=== PATIENT | male | born 1980 | race African-American/Black ===

== ENCOUNTER 2024-03-22 12:24 | Emergency (ER) | payer BC, SELFPAY ==
[2024-03-22] VITALS (8 sets, daily range): BP systolic 119–171; BP diastolic 80–105; BMI 39.4
[2024-03-22 13:01] LABS: % Basophils 0.7 % (0-2); % Eosinophils 1.8 % (0-6); % Immature Granulocytes 0.4 % (0-0.5); % Lymphocytes 48.4 % (20.5-51.1); % Monocytes 8.1 % (1.7-9.3); % Neutrophils 40.6 % (42.2-75.2); Absolute Eosinophils 0.1 10^3/uL (0-0.7); Absolute Lymphocytes 2.2 10^3/uL (1.2-3.4); Absolute Monocytes 0.4 10^3/uL (0.1-0.6); Absolute Neutrophils 1.8 10^3/uL (1.4-6.5); Hematocrit 40.2 % (39.0-52.0); Hemoglobin 14.3 g/dL (13.0-18.0); Mean Corp Hgb Conc. 35.6 g/dL (33.0-37.0); Mean Corpuscular Hgb 30.2 pg (27.0-31.0); Mean Corpuscular Volume 84.8 fL (80.0-94.0); Mean Platelet Volume 10.1 fL (7.4-10.4); Nucleated Red Blood Cells % 0 % (-); Platelet Count 175 10^3/uL (130-400); Red Blood Cell Count 4.74 10^6/uL (4.70-6.10); Red Cell Dist. Width 13.8 % (11.5-14.5); White Blood Cell Count 4.5 10^3/uL (4.8-10.8)
[2024-03-22 13:24] LABS: ALT (SGPT) 24 U/L (0-50); AST (SGOT) 26 U/L (17-59); Albumin 4.3 g/dl (3.5-5.0); Alkaline Phosphatase 76 U/L (38-126); Blood Urea Nitrogen 9 mg/dl (9-20); Calcium 9.6 mg/dl (8.4-10.2); Carbon Dioxide 26 mmol/L (22-30); Chloride 102 mmol/L (98-107); Estimated Creatinine Clearance 103 ml/min; Glucose 127 mg/dl (70-99); Potassium 4.6 mmol/L (3.5-5.1); Sodium 136 mmol/L (135-145); Total Bilirubin 0.4 mg/dl (0.2-1.3); Total Protein 6.5 g/dl (6.3-8.2); eGFR > 60.00
[2024-03-22] MEDS: BENADRYL 25 MG IV (14:06)
[2024-03-22] MEDS: REGLAN 10 MG IV (14:07)
--- NOTE | 2024-03-22 14:12 | ED.GENMED ---
History of Present Illness
General
Chief Complaint: Headache
Source: patient
Exam Limitations: none
Time Seen by Provider: 03/22/24 13:17
Nursing documentation reviewed up to this point in time: agreed with
History of Present Illness
History of Present Illness:
44 y/o M with h/o bipolar, depression, insomnia, epilepsy dx 08/2023 first seizure, has had 4 seizures most recetn early february when he was taken off keppra nd changed to lamictal
here with headache 2-3 days
gradual, bitemporal and top of head, would come on and get beter with iburpofen initially but last night started pain 8 pm and was in a lto of pain overnight
he finaly felt relief around 6 am
he has had some photophobia, no nausea, vomiting, weakness, vision changes, dizzniess, cp, sob
he became a bit anxious last night about the symptoms but now feels better
he called his neurologist who called in RX for sumatriptan but he didn't get it yet
mom wanted him to come get checked
he thinks he wants to switch neurologists
no fever, chills, congestion
Past History
Past History
ED Past Medical History: HTN, Psychiatric (anxiety) and Other (hiatal hernia)
Social History
Tobacco: Smoker (cigars)
Alcohol: Occasional
Drug: None
Review of Systems
Review of Systems
Allergies reviewed?: Yes
All Other Systems: Not applicable
Phy Exam
Physical Exam
Physical Exam:
GENERAL: Alert , in no apparent distress, eddie well appearing
HEAD: NCAT
EYE: pupils equal and reactive, no nystagmus, no photophobia
NECK: Supple,full rom, nontender
ENT: o/p clr, mmm.
CARDIAC: Regular rate and rhythm . no edema
LUNGS: Clear breath sounds bilaterally, no acute respiratory distress, no wheezes/rales/rhonchi
ABDOMEN: Soft, without focal tenderness, no r/g, no cvat
NEUROLOGICAL: Alert and orientedx 4, cn intact, no facial asymmetry, 5/5 strength in UE/LE, sensation intact, romberg neg, ambulates without assistance, neg pronator drift
SKIN: Warm and dry, skin intact.
MUSCULOSKELETAL: No edema, well perfused.
PSYCH: Normal and appropriate interaction.
Course
Orders/Labs/Results
Orders:
Orders
03/22/24 12:55
Complete Blood Count/With Diff Urgent
Comprehensive Metabolic Panel Urgent
03/22/24 13:46
Diphenhydramine [Benadryl] 25 mg IV NOW STA
Metoclopramide [Reglan] 10 mg IV NOW STA
03/22/24 13:47
CT Head W/o Iv Contrast Urgent
Comment:
Reason For Exam: headache
03/22/24 14:12
Add On- LAB Urgent
Tests Added?: depakote level
03/22/24 14:57
Depakane Urgent
03/22/24 15:26
Sumatriptan Succinate [Imitrex] 6 mg SC NOW STA
03/22/24 15:29
Electrocardiogram (*1) Urgent
Reason for Study: QTc Monitoring
EKG- Treatment ONCE
Abnormal Lab Results
03/22/24
12:55
WBC 4.5 L 10^3/uL
(4.8-10.8)
Neutrophils % 40.6 L %
(42.2-75.2)
Glucose 127 H mg/dl
(70-99)
03/22/24 12:55
03/22/24 12:55
Vital Signs
Initial and Last Documented VS:
Initial Vital Signs
Temp Pulse Resp BP Pulse Ox
98.4 F 94 18 171/105 95
03/22/24 12:28 03/22/24 12:28 03/22/24 12:28 03/22/24 12:28 03/22/24 12:28
Last Documented Vital Signs
Temp Pulse Resp BP Pulse Ox
98.4 F 93 19 120/87 94
03/22/24 12:28 03/22/24 16:35 03/22/24 16:35 03/22/24 16:35 03/22/24 14:30
MDM/Problems Addressed
Differential Diagnosis Includes:
headache, migraine, tension headache,
MDM/Problems Addressed:
44 y/o M with ho epilepsy
on lamictal,
here with headache x 3 days waxing and waning, intiially treated with iburpfoen but now it isn't helping much
he had worse pain overnight and didn't sleep well but now he feels it is a little better 6/10
he has some photohpobia, no nausea/vomiting
he called his neurologist yesterday from [place] who called him in sumatriptan but pt didn't pick it up yet and mom wanted him to get checed
no fever, chills, congesiton, sore throat, visoin changes, weakness, numbness, cp, sob
he is extremely well appearing
comfortable
no photophobia
normal neuro exam
appreciated htn in waiting room but improved bp here
screening labs unremarkable
ct neg
reassessed after reglan and benadryl and still having 6/10 pain though he ate a sandwich and seems very comfortable
given his neurologist recommended sumatriptan, i did give a dose
screenign ekg normal
pt had almost complete resolution pain /10
stable for d/c
fu neuro
*Critical Care Note
Total Time (30-74mins, 75-104mins- exclusive of procedures): Not Applicable
ED Attending Note
-
Portions of this chart may have been created with voice recognition software.� Occasional wrong word or��sound alike� substitutions may have occurred due to the inherent limitations of voice recognition software.
Discharge Plan
Departure
Patient Disposition: Home (Routine Discharge)
Date of Disposition: 03/22/24
Time of Disposition: 16:17
Patient with high blood pressure during this ER visit?: No
Discharge Problem:
Headache
Instructions: Headache, Adult (DC)
Prescriptions:
No Action
divalproex [Depakote] 500 mg Tablet,Delayed Release (Dr/Ec)
1,000 mg PO BID
lamotrigine 25 mg Tablet
25 mg PO BID
metformin 500 mg Tablet
500 mg PO BID
quetiapine [Seroquel XR] 150 mg Tablet Extended Release 24 Hr
150 mg PO HS
Ozempic 0.25 mg or 0.5 mg (2 mg/3 mL) Pen Injector
0.5 mg SC MO
Rx Instructions:
for 4 weeks
Referrals:
Ricco Boo MD [Active] - Follow up in 1 week (NEURO)
Dai Dumont DO [Family Provider] - Follow up in 2-3 days
Activity Restrictions/Additional Instructions:
YOUR HEADACHE DOES NOT SEEM TO BE CAUSED BY AN EMERENCY
I TRIED CALLING YOUR DOCTOR BUT LEFT A MESSAGE
YOU WERE GIVEN THE MEDICATION THAT I GAVE YOU TODAY THAT HELPED
USE DIRECTED BY YOUR NEUROLOGIST
FOLLOW UP WITH HIM
YOU CAN ALWAYS CALL OUR NEUROLOGY GROUP FOR AN APPOINTMENT
RETURN FOR ANY CONCERNS LIKE SEVERE SUDDEN WORST HEADACHE OF LIFE, VOMITING, FEVER, EAKNESS, DIZZINESS, BLURRY VISION ETC
Interventions
Interventions:
*Risk Screen - Suicide Last Done: 03/22/24 12:39
*General Assessment Last Done: 03/22/24 12:28
*Neglect/Abuse Screening Last Done: 03/22/24 12:39
*ED COVID-19 Vaccine History Last Done: 03/22/24 12:28
*Nursing Disposition Last Done: 03/22/24 16:35
ED- Neurological Assessment Last Done: 03/22/24 12:39
Discharge Date and Time
Discharge Date/Time: 03/22/24 16:36
Print Language: SYRIAC
[2024-03-22] MEDS: IMITREX 6 MG SC (15:49)
== END 2024-03-22 16:36 | disposition home or self-care (01) ==
LOC: EMR 12:24
PROVIDERS: EMERGENCY PHYSICIAN Emergency Medicine; FAMILY PHYSICIAN Family Medicine
DX: R51.9 Headache, unspecified (principal); H53.149 Visual discomfort, unspecified; I10 Essential (primary) hypertension; G40.909 Epilepsy, unspecified, not intractable, without status epilepticus; F41.9 Anxiety disorder, unspecified; K44.9 Diaphragmatic hernia without obstruction or gangrene; K21.9 Gastro-esophageal reflux disease without esophagitis; F31.9 Bipolar disorder, unspecified; F32.A Depression, unspecified; F17.290 Nicotine dependence, other tobacco product, uncomplicated; Z96.643 Presence of artificial hip joint, bilateral; Z88.6 Allergy status to analgesic agent; Z88.8 Allergy status to other drugs, medicaments and biological substances
CPT/HCPCS: 99285; 96374; 96375; 96372; 70450; 80053; 85025; 93005

== ENCOUNTER 2024-05-10 05:12 | Inpatient (IN) | payer BC, SELFPAY ==
[2024-05-09] VITALS (24 sets, daily range): BP systolic 105–165; BP diastolic 65–125; BMI 35.6
--- NOTE | 2024-05-09 20:25 | EDRN ---
1953- 2mg IV ativan given
1956- 2mg IV ativan given
1957- 102 HR
2004- 18G IV L hand
2005- 100mg of propofol given by Dr. Solitario; 22G IV L hand
2006- rocuronium 100mg
2007- 132/111 BP
2008- An additional 60mg of propofol given
2010- patient being bagged
2012- attempt x2 for ET placement by Dr. Solitario
2012- Dr. Goldstein at bedside
2013- Dr. Goldstein successful with ET placement - 8 mm ET, 24 at the lip
--- NOTE | 2024-05-09 20:29 | ED.GENMED ---
History of Present Illness
General
Chief Complaint: Seizure
Source: family
Time Seen by Provider: 05/09/24 20:05
Nursing documentation reviewed up to this point in time: agreed with
History of Present Illness
History of Present Illness:
44-year-old male presents emergency department seizing. He has a history of seizures and every time he has seizures, he usually gets intubated. He was not feeling well, and his mother was bringing him to the hospital when he began having seizures.
Past History
Past History
ED Past Medical History: HTN, Seizures, Psychiatric (anxiety) and Other (hiatal hernia)
ED Past Surgical History: Orthopedic (Bilateral hip replacement)
Social History
Tobacco: Smoker (cigars)
Alcohol: Occasional
Drug: None
Review of Systems
Review of Systems
Allergies reviewed?: Yes
Unable to obtain full review of systems at this time due to: intubated
All Other Systems: Not applicable
Phy Exam
Physical Exam
Physical Exam:
Physical Exam
General: Seizing
Neck: supple. no meningeal signs. normal posterior pharynx
Heart: s1/s2 tachycardia, no murmur. equal radial
pulses.
HEENT: Pupils equal round reactive to light, EOMI
Lungs: no acute respiratory distress. clear bilaterally
Abdomen: normal bowel sounds. not tender. no CVAT
Neuro: Actively seizing
Skin: no rash
Psychiatric: Seizing
Extremities: no edema. no calf tenderness. negative homans. good distal pulses
Course
Orders/Labs/Results
Orders:
Orders
05/09/24 20:12
Portable Chest Xray [CR Chest Portable - 1 View] Urgent
Comment:
Reason For Exam: tube placement
Reason Study Needs to be Portable: Patient Unstable
05/09/24 20:18
Propofol 1,000,000 Mcg/100 ml [Diprivan] 1,000,000 mcg in 100 ml .ROUTE .STK-MED
05/09/24 20:19
Complete Blood Count/With Diff Urgent
Comprehensive Metabolic Panel Urgent
PT/INR [Prothrombin Time] Urgent
Triglycerides Routine
Comment: baseline levels with propofol infusion
Troponin I Urgent
05/09/24 20:22
FentaNYL 1,000 MCG/100 ML [Sublimaze] 1,000 mcg in 100 ml IV NOW
Indication:: Light Sedation
Begin Infusion:: Now
Goal:: pain score </= 1, CPOT 0-2
Maximum dose in mcg/hr:: 300
Initial Dose in mcg/hr:: 50
Titration Instructions:: Titrate every 30 minutes if patient exhibits signs of pain or discomfort
Titration Instructions:: (pain score >/= 2, CPOT >/= 3).
Titration Instructions:: Administer bolus dose and increase infusion by 25 mcg/hr.
Taper Instructions:: If pain score at goal for 4 consecutive hours (pain score </= 1, CPOT 0-2)
Taper Instructions:: decrease infusion by 50 mcg/hr every 2 hours.
Taper Instructions:: When dose </= 50 mcg/hr may turn infusion off and consider PRN
Taper Instructions:: intermittent bolus doses only.
Over-sedation Instructions:: If CPOT 0-2 (goal) and RASS -3 to -5 (below goal) decrease sedative by 50%
Over-sedation Instructions:: first. If pain score remains at goal and RASS remains below goal in 1 hour,
Over-sedation Instructions:: decrease opioid infusion by 50%.
Notify provider:: immediately if pt exhibits: chest wall rigidity, hemodynamic instability,
Notify provider:: agitation/pain despite maximum dosing, pain when RASS below goal.
Additional Instructions:: Patient MUST be mechanically ventilated.
Fentanyl Citrate/Pf [Sublimaze] 50 mcg IV NOW STA
Fentanyl Citrate/Pf [Sublimaze] 50 mcg IV [id number] PRN
Propofol 1,000,000 Mcg/100 ml [Diprivan] 1,000,000 mcg in 100 ml IV NOW
Indication:: Light Sedation
Begin Infusion:: Now
Goal:: RASS 0 to -2
Maximum dose in mcg/kg/min:: 50
Initial dose based on RASS:: Yes
If RASS is:: +1 or pt hemodynamically unstable (SBP < 90mmHg), initiate at 10 mcg/kg/min
If RASS is:: +2, initiate at 20 mcg/kg/min
If RASS is:: greater than or equal to +3, initiate at 30 mcg/kg/min
Titration Instructions:: Titrate by 5-10 mcg/kg/min every 5 minutes until RASS 0 to -2 achieved.
Taper Instructions:: If RASS is at or below goal for 4 consecutive hours decrease infusion by
Taper Instructions:: 5-10 mcg/kg/min every 2 hours to off.
Over-sedation Instructions:: If CPOT 0-2 (at goal) AND RASS -3 to -5 (below goal) decrease sedative by
Over-sedation Instructions:: 50% first. If pain score remains at goal and RASS remains below goal in
Over-sedation Instructions:: 1 hour, decrease opioid infusion by 50%.
Notify provider:: immediately if patient exhibits signs/symptoms of propofol-related
Notify provider:: infusion syndrome.
Additional Instructions:: Patient MUST be mechanically ventilated and MUST receive analgesia.
05/09/24 20:27
Propofol 1,000,000 Mcg/100 ml [Diprivan] 1,000,000 mcg in 100 ml IV NOW
05/09/24 20:29
Electrocardiogram (*1) Stat
Reason for Study: Other
Other Reason for Exam: seizures
Electrocardiogram (*1) Urgent
Reason for Study: Shortness of Breath
EKG- Treatment ONCE
05/09/24 21:22
ABG [Arterial Blood Gas] Urgent
%Oxygen/Room Air: 100
05/09/24 22:00
Flush (0.9% Sodium Chloride) [Flush (Nss)] See Dose Instructions IV PER PROTOCOL
05/09/24 22:30
0.9% Sodium Chloride 1000 ml [Nss] 1,000 ml IV 125 mls/hr
Abnormal Lab Results
05/09/24 05/09/24
20:19 21:22
Absolute Monos (auto) 0.7 H 10^3/uL
(0.1-0.6)
Neutrophils % 34.5 L %
(42.2-75.2)
Lymphocytes % 51.2 H %
(20.5-51.1)
Monocytes % 11.6 H %
(1.7-9.3)
pH 7.31 L
(7.35-7.45)
pCO2 50 H mmHg
(35-48)
pO2 130 H mmHg
(83-108)
ABG O2 Sat (Measured) 99.0 H %
(94-98)
Glucose 107 H mg/dl
(70-99)
AST 66 H U/L
(17-59)
Triglycerides 152 H mg/dl
(10-149)
05/09/24 20:19
05/09/24 20:19
Vital Signs
Initial and Last Documented VS:
Initial Vital Signs
BP
124/77
05/09/24 20:00
Last Documented Vital Signs
Temp Pulse Resp BP Pulse Ox
98.2 F 80 14 109/70 100
05/09/24 22:00 05/09/24 22:15 05/09/24 22:15 05/09/24 22:15 05/09/24 22:15
Procedures
Intubations
Procedure completed by: Triston/Kassi
Method of Intubation: glidescope
Tube size (cm): 8.0
Placement confirmed by: auscutation, CXR, capnography and direct visualization
Breath sounds after intubation: equal
Intubation complications: no complications
MDM/Problems Addressed
Differential Diagnosis Includes:
status epilepticus, aspiration
MDM/Problems Addressed:
44-year-old male with status epilepticus, intubated for airway protection. Seizure activity stopped after propofol given. Will admit to ICU on propofol drip. Neurology notified, hospitalist notified
Chronic conditions affecting care: HTN and Neurological disorder (Epilepsy)
Acute Exacerbation and/or Progression of Chronic Illness: HTN and Neurological disorder (Epilepsy)
*Radiology
Radiology exam reviewed: preliminary read by ED provider (ETT in place on cxr)
*Pulse Oximetry
Patient hypoxic: no
*Allergist/Immunologist Interpretation
Rate: tachycardiac
Interpretation: abnormal
Heart Rate: 112
Rhythm: sinus tachycardia
*Critical Care Note
Total Time (30-74mins, 75-104mins- exclusive of procedures): 75
comment:
Critical care statement: A total of 75 minutes of critical care time was provided for this patient. This includes management of unstable vital signs, evaluation of the patient at bedside, reviewing the patient's pertinent medical records, discussion
with consultants, review of old EKGs and review of pertinent medical records. This time with separate from time utilized to perform the aforementioned documented procedures
Patient Management
Discussion with other providers: Hospitalist and Application Systems Engineer (Neurologist Dr. Badillo)
Escalation/DeEscalation of care consider admission/obs:
admit to ICU indicated
Update Note
Update Note:
Ventilator adjusted due to mild acidemia, increased tidal volume to 550
ED Attending Note
-
Portions of this chart may have been created with voice recognition software.� Occasional wrong word or��sound alike� substitutions may have occurred due to the inherent limitations of voice recognition software.
Discharge Plan
Departure
Patient Disposition: Acute Care Hospital
Date of Disposition: 05/09/24
Time of Disposition: 21:07
Patient with high blood pressure during this ER visit?: Yes
Condition: Serious
Discharge Problem:
Epilepsy with status epilepticus, Respiratory failure
Prescriptions:
No Action
divalproex [Depakote] 500 mg Tablet,Delayed Release (Dr/Ec)
1,000 mg PO HS
lamotrigine 25 mg Tablet
25 mg PO DAILY
quetiapine [Seroquel XR] 150 mg Tablet Extended Release 24 Hr
150 mg PO HS
lorazepam 0.5 mg tablet
1 mg PO DAILYPRN PRN (Reason: anxiety)
Patient Comments:
05/09/2024: last filled 03/12/24, 60 tabs for 30 days from [id number]
fluvoxamine 25 mg tablet
25 mg PO DAILY
divalproex 500 mg tablet extended release 24 hr
500 mg PO DAILY
hydroxyzine HCl 25 mg tablet
50 mg PO TIDPRN PRN (Reason: anxiety)
diazepam 10 mg tablet
20 mg PO HS
Patient Comments:
05/09/2024: Taken w/ 5mg = 25mg; last filled 04/08/24, 60 tabs for 15 days from [id number]
diazepam 5 mg tablet
5 mg PO HS
Patient Comments:
05/09/2024: Taken w/ 20mg = 25mg; last filled 04/22/24, 30 tabs for 30 days from [id number]
eszopiclone 3 mg tablet
3 mg PO HS
Patient Comments:
05/09/2024: taken w/ 1mg = 4mg
eszopiclone 1 mg tablet
1 mg PO HS
Patient Comments:
05/09/2024: taken w/ 3mg = 4mg
guanfacine 1 mg tablet extended release 24 hr
1 mg PO HS
Referrals:
UNKNOWN - PT DOES,NOT KNOW [Unknown Provider] -
Hospital Transfer
Other hospital: [facility]
I certify that the patient requires transfer: Yes
Discussed case with accepting physician: Melquiades
Reason for transfer: availability of service
Interventions
Interventions:
*Risk Screen - Suicide Last Done: 05/09/24 20:38
*General Assessment Last Done: 05/09/24 20:38
*Neglect/Abuse Screening Last Done: 05/09/24 20:38
ED- Cardiac Assessment Last Done: 05/09/24 20:38
ED- Neurological Assessment Last Done: 05/09/24 20:38
ED- Pulmonary Assessment Last Done: 05/09/24 20:38
Discharge Date and Time
Print Language: HEBREW
[2024-05-09] MEDS: DIPRIVAN 100 IV (20:47)
[2024-05-09 20:48] LABS: INR 1.05; PT 13.7 Sec (11.4-14.6)
[2024-05-09] MEDS: SUBLIMAZE 50 MCG IV ×2 (20:54→23:25)
[2024-05-09 20:55] LABS: Hematocrit 42.7 % (39.0-52.0); Hemoglobin 15.1 g/dL (13.0-18.0); Mean Corp Hgb Conc. 35.4 g/dL (33.0-37.0); Mean Corpuscular Hgb 30.4 pg (27.0-31.0); Mean Corpuscular Volume 86.1 fL (80.0-94.0); Mean Platelet Volume 9.6 fL (7.4-10.4); Platelet Count 306 10^3/uL (130-400); Red Blood Cell Count 4.96 10^6/uL (4.70-6.10); Red Cell Dist. Width 13.7 % (11.5-14.5); White Blood Cell Count 6.3 10^3/uL (4.8-10.8)
[2024-05-09 20:57] LABS: ALT (SGPT) 50 U/L (0-50); AST (SGOT) 66 U/L (17-59); Alkaline Phosphatase 79 U/L (38-126); Blood Urea Nitrogen 14 mg/dl (9-20); Carbon Dioxide 24 mmol/L (22-30); Chloride 101 mmol/L (98-107); Estimated Creatinine Clearance 97 ml/min; Glucose 107 mg/dl (70-99); Sodium 140 mmol/L (135-145); Total Bilirubin 0.4 mg/dl (0.2-1.3); Total Protein 7.6 g/dl (6.3-8.2); Triglycerides 152 mg/dl (10-149); eGFR > 60.00
[2024-05-09] MEDS: SUBLIMAZE 100 IV (20:58)
[2024-05-09 20:59] LABS: Troponin I < 0.012 ng/ml
[2024-05-09 21:07] LABS: % Eosinophils 1.4 % (0-6); % Immature Granulocytes 0.3 % (0-0.5); % Lymphocytes 51.2 % (20.5-51.1); % Monocytes 11.6 % (1.7-9.3); % Neutrophils 34.5 % (42.2-75.2); Absolute Basophils 0.1 10^3/uL (0-0.2); Absolute Eosinophils 0.1 10^3/uL (0-0.7); Absolute Lymphocytes 3.2 10^3/uL (1.2-3.4); Absolute Monocytes 0.7 10^3/uL (0.1-0.6); Absolute Neutrophils 2.2 10^3/uL (1.4-6.5); Nucleated Red Blood Cells % 0 % (-)
[2024-05-09 21:35] LABS: B.E. -1.7 mmol/L; HCO3 25.2 mmol/L (21-28); PCO2 50 mmHg (35-48); PO2 130 mmHg (83-108); pH 7.31 (7.35-7.45)
[2024-05-09] MEDS: NSS 1000 IV (22:37)
[2024-05-10] VITALS (19 sets, daily range): BP systolic 104–123; BP diastolic 61–83; BMI 35.2
--- NOTE | 2024-05-10 00:58 | ED.GENMED ---
History of Present Illness
General
Chief Complaint: Seizure
Time Seen by Provider: 05/09/24 20:05
Past History
Past History
ED Past Medical History: HTN, Seizures, Psychiatric (anxiety) and Other (hiatal hernia)
ED Past Surgical History: Orthopedic (Bilateral hip replacement)
Social History
Tobacco: Smoker (cigars)
Alcohol: Occasional
Drug: None
Course
Orders/Labs/Results
Orders:
Orders
05/09/24 20:12
Portable Chest Xray [CR Chest Portable - 1 View] Urgent
Comment:
Reason For Exam: tube placement
Reason Study Needs to be Portable: Patient Unstable
05/09/24 20:18
Propofol 1,000,000 Mcg/100 ml [Diprivan] 1,000,000 mcg in 100 ml .ROUTE .STK-MED
05/09/24 20:19
Complete Blood Count/With Diff Urgent
Comprehensive Metabolic Panel Urgent
PT/INR [Prothrombin Time] Urgent
Triglycerides Routine
Comment: baseline levels with propofol infusion
Troponin I Urgent
05/09/24 20:22
FentaNYL 1,000 MCG/100 ML [Sublimaze] 1,000 mcg in 100 ml IV NOW
Indication:: Light Sedation
Begin Infusion:: Now
Goal:: pain score </= 1, CPOT 0-2
Maximum dose in mcg/hr:: 300
Initial Dose in mcg/hr:: 50
Titration Instructions:: Titrate every 30 minutes if patient exhibits signs of pain or discomfort
Titration Instructions:: (pain score >/= 2, CPOT >/= 3).
Titration Instructions:: Administer bolus dose and increase infusion by 25 mcg/hr.
Taper Instructions:: If pain score at goal for 4 consecutive hours (pain score </= 1, CPOT 0-2)
Taper Instructions:: decrease infusion by 50 mcg/hr every 2 hours.
Taper Instructions:: When dose </= 50 mcg/hr may turn infusion off and consider PRN
Taper Instructions:: intermittent bolus doses only.
Over-sedation Instructions:: If CPOT 0-2 (goal) and RASS -3 to -5 (below goal) decrease sedative by 50%
Over-sedation Instructions:: first. If pain score remains at goal and RASS remains below goal in 1 hour,
Over-sedation Instructions:: decrease opioid infusion by 50%.
Notify provider:: immediately if pt exhibits: chest wall rigidity, hemodynamic instability,
Notify provider:: agitation/pain despite maximum dosing, pain when RASS below goal.
Additional Instructions:: Patient MUST be mechanically ventilated.
Fentanyl Citrate/Pf [Sublimaze] 50 mcg IV NOW STA
Fentanyl Citrate/Pf [Sublimaze] 50 mcg IV [id number] PRN
Propofol 1,000,000 Mcg/100 ml [Diprivan] 1,000,000 mcg in 100 ml IV NOW
Indication:: Light Sedation
Begin Infusion:: Now
Goal:: RASS 0 to -2
Maximum dose in mcg/kg/min:: 50
Initial dose based on RASS:: Yes
If RASS is:: +1 or pt hemodynamically unstable (SBP < 90mmHg), initiate at 10 mcg/kg/min
If RASS is:: +2, initiate at 20 mcg/kg/min
If RASS is:: greater than or equal to +3, initiate at 30 mcg/kg/min
Titration Instructions:: Titrate by 5-10 mcg/kg/min every 5 minutes until RASS 0 to -2 achieved.
Taper Instructions:: If RASS is at or below goal for 4 consecutive hours decrease infusion by
Taper Instructions:: 5-10 mcg/kg/min every 2 hours to off.
Over-sedation Instructions:: If CPOT 0-2 (at goal) AND RASS -3 to -5 (below goal) decrease sedative by
Over-sedation Instructions:: 50% first. If pain score remains at goal and RASS remains below goal in
Over-sedation Instructions:: 1 hour, decrease opioid infusion by 50%.
Notify provider:: immediately if patient exhibits signs/symptoms of propofol-related
Notify provider:: infusion syndrome.
Additional Instructions:: Patient MUST be mechanically ventilated and MUST receive analgesia.
05/09/24 20:27
Propofol 1,000,000 Mcg/100 ml [Diprivan] 1,000,000 mcg in 100 ml IV NOW
05/09/24 20:29
Electrocardiogram (*1) Stat
Reason for Study: Other
Other Reason for Exam: seizures
Electrocardiogram (*1) Urgent
Reason for Study: Shortness of Breath
EKG- Treatment ONCE
05/09/24 21:22
ABG [Arterial Blood Gas] Urgent
%Oxygen/Room Air: 100
05/09/24 22:00
Flush (0.9% Sodium Chloride) [Flush (Nss)] See Dose Instructions IV PER PROTOCOL
05/09/24 22:30
0.9% Sodium Chloride 1000 ml [Nss] 1,000 ml IV 125 mls/hr
05/09/24 23:21
Restraints - Non Violent As Directed
Justification-Patient:: 1-Attempts to remove tube
Restraint Type-: Soft Limb-L&R Wrist/4rail
Apply From (date): 05/09/24
Apply from (time): 23:21
Remove (date): 05/10/24
Remove (time): 23:59
05/10/24 01:24
FentaNYL 1,000 MCG/100 ML [Sublimaze] 1,000 mcg in 100 ml IV NOW
Indication:: Light Sedation
Begin Infusion:: Now
Goal:: pain score </= 1, CPOT 0-2
Maximum dose in mcg/hr:: 300
Continue currently infusing dose and titrate:: Yes
Titration Instructions:: Titrate every 30 minutes if patient exhibits signs of pain or discomfort
Titration Instructions:: (pain score >/= 2, CPOT >/= 3).
Titration Instructions:: Administer bolus dose and increase infusion by 25 mcg/hr.
Taper Instructions:: If pain score at goal for 4 consecutive hours (pain score </= 1, CPOT 0-2)
Taper Instructions:: decrease infusion by 50 mcg/hr every 2 hours.
Taper Instructions:: When dose </= 50 mcg/hr may turn infusion off and consider PRN
Taper Instructions:: intermittent bolus doses only.
Over-sedation Instructions:: If CPOT 0-2 (goal) and RASS -3 to -5 (below goal) decrease sedative by 50%
Over-sedation Instructions:: first. If pain score remains at goal and RASS remains below goal in 1 hour,
Over-sedation Instructions:: decrease opioid infusion by 50%.
Notify provider:: immediately if pt exhibits: chest wall rigidity, hemodynamic instability,
Notify provider:: agitation/pain despite maximum dosing, pain when RASS below goal.
Additional Instructions:: Patient MUST be mechanically ventilated.
Fentanyl Citrate/Pf [Sublimaze] 100 mcg IV NOW STA
Fentanyl Citrate/Pf [Sublimaze] 50 mcg IV [id number] PRN
05/10/24 01:27
Propofol 1,000,000 Mcg/100 ml [Diprivan] 1,000,000 mcg in 100 ml .ROUTE .STK-MED
05/10/24 01:36
Triglycerides Routine
Comment: baseline levels with propofol infusion
Propofol 1,000,000 Mcg/100 ml [Diprivan] 1,000,000 mcg in 100 ml IV NOW
Indication:: Light Sedation
Begin Infusion:: Now
Goal:: RASS 0 to -2
Maximum dose in mcg/kg/min:: 50
Initial dose based on RASS:: Yes
If RASS is:: +1 or pt hemodynamically unstable (SBP < 90mmHg), initiate at 10 mcg/kg/min
If RASS is:: +2, initiate at 20 mcg/kg/min
If RASS is:: greater than or equal to +3, initiate at 30 mcg/kg/min
Titration Instructions:: Titrate by 5-10 mcg/kg/min every 5 minutes until RASS 0 to -2 achieved.
Taper Instructions:: If RASS is at or below goal for 4 consecutive hours decrease infusion by
Taper Instructions:: 5-10 mcg/kg/min every 2 hours to off.
Over-sedation Instructions:: If CPOT 0-2 (at goal) AND RASS -3 to -5 (below goal) decrease sedative by
Over-sedation Instructions:: 50% first. If pain score remains at goal and RASS remains below goal in
Over-sedation Instructions:: 1 hour, decrease opioid infusion by 50%.
Notify provider:: immediately if patient exhibits signs/symptoms of propofol-related
Notify provider:: infusion syndrome.
Additional Instructions:: Patient MUST be mechanically ventilated and MUST receive analgesia.
Abnormal Lab Results
05/09/24 05/09/24
20:19 21:22
Absolute Monos (auto) 0.7 H 10^3/uL
(0.1-0.6)
Neutrophils % 34.5 L %
(42.2-75.2)
Lymphocytes % 51.2 H %
(20.5-51.1)
Monocytes % 11.6 H %
(1.7-9.3)
pH 7.31 L
(7.35-7.45)
pCO2 50 H mmHg
(35-48)
pO2 130 H mmHg
(83-108)
ABG O2 Sat (Measured) 99.0 H %
(94-98)
Glucose 107 H mg/dl
(70-99)
AST 66 H U/L
(17-59)
Triglycerides 152 H mg/dl
(10-149)
05/09/24 20:19
05/09/24 20:19
Vital Signs
Initial and Last Documented VS:
Initial Vital Signs
BP
124/77
05/09/24 20:00
Last Documented Vital Signs
Temp Pulse Resp BP Pulse Ox
97.1 F 67 14 114/76 100
05/10/24 02:48 05/10/24 02:45 05/10/24 02:30 05/10/24 02:45 05/10/24 02:45
Update Note
Update Note:
05/10/2024 0100 AM: Found out from [facility] that they do not have a bed. They state that they have a '8-hour window' to place the patient. That being said, I spoke with the hospitalist to see if admission here at [facility] is possible
based on the projected admission time. Hospitalist does not feel that admission at [facility] is possible. I spoke with Devora Ravi, who agreed to allow us to search for a different tertiary care center to transfer patient to. We are
contacting [facility] for possible transfer.
05/10/2024 0112 AM: After speaking with the transfer center, they told us that if patient wanted to be transferred to [facility], patient would lose their spot in the queue for [place]. As of now patient will be transferred to [place] within 4
hours. I did speak with Devoar Ravi, patient's who agreed to keep the patient waiting for [facility].
05/10/2024 0206 AM: Received a call back from the transfer center who stated that patient now has a room ready at [facility] in [place]. We are arranging transport. I spoke with patient's Devora who is now aware that patient will
be transferred to [place].
ED Attending Note
-
Portions of this chart may have been created with voice recognition software.� Occasional wrong word or��sound alike� substitutions may have occurred due to the inherent limitations of voice recognition software.
Discharge Plan
Departure
Patient Disposition: Acute Care Hospital
Date of Disposition: 05/09/24
Time of Disposition: 21:07
Patient with high blood pressure during this ER visit?: Yes
Condition: Serious
Discharge Problem:
Epilepsy with status epilepticus, Respiratory failure
Prescriptions:
No Action
divalproex [Depakote] 500 mg Tablet,Delayed Release (Dr/Ec)
1,000 mg PO HS
lamotrigine 25 mg Tablet
25 mg PO DAILY
quetiapine [Seroquel XR] 150 mg Tablet Extended Release 24 Hr
150 mg PO HS
lorazepam 0.5 mg tablet
1 mg PO DAILYPRN PRN (Reason: anxiety)
Patient Comments:
05/09/2024: last filled 03/12/24, 60 tabs for 30 days from [id number]
fluvoxamine 25 mg tablet
25 mg PO DAILY
divalproex 500 mg tablet extended release 24 hr
500 mg PO DAILY
hydroxyzine HCl 25 mg tablet
50 mg PO TIDPRN PRN (Reason: anxiety)
diazepam 10 mg tablet
20 mg PO HS
Patient Comments:
05/09/2024: Taken w/ 5mg = 25mg; last filled 04/08/24, 60 tabs for 15 days from [facility]
diazepam 5 mg tablet
5 mg PO HS
Patient Comments:
05/09/2024: Taken w/ 20mg = 25mg; last filled 04/22/24, 30 tabs for 30 days from [facility]
eszopiclone 3 mg tablet
3 mg PO HS
Patient Comments:
05/09/2024: taken w/ 1mg = 4mg
eszopiclone 1 mg tablet
1 mg PO HS
Patient Comments:
05/09/2024: taken w/ 3mg = 4mg
guanfacine 1 mg tablet extended release 24 hr
1 mg PO HS
Referrals:
UNKNOWN - PT DOES,NOT KNOW [Unknown Provider] -
Hospital Transfer
Other hospital: [facility]
I certify that the patient requires transfer: Yes
Discussed case with accepting physician: Melquiades
Reason for transfer: availability of service
Interventions
Interventions:
*Risk Screen - Suicide Last Done: 05/09/24 20:38
*General Assessment Last Done: 05/09/24 20:38
*Neglect/Abuse Screening Last Done: 05/09/24 20:38
ED- Cardiac Assessment Last Done: 05/10/24 00:07
ED- Neurological Assessment Last Done: 05/10/24 00:07
ED- Pulmonary Assessment Last Done: 05/10/24 00:07
Discharge Date and Time
Print Language: GREENLANDIC
[2024-05-10] MEDS: DIPRIVAN 100 IV ×3 (01:41→10:03)
--- NOTE | 2024-05-10 03:48 | HPS.HSE ---
Family Physician
-
Family Physician: Dai Dumont
Chief Complaint
-
seizures
History of Present Illness
Mr. Leon Ravi is a 44 yo man with hx seizures, HTN, anxiety who was brought to the ER by his mother for seizures. He has a history of requiring intubation in past for seizures.
Patient was found to be in status upon arrival to the ER. He was intubated for airway protection and started on a propofol drip. Plan is for transfer to [facility], but unable to obtain transport for the next 4 hours.
Patient is sedated and cannot give further history.
Medical History
Past Medical History
Past Medical History: Reports HTN and Other (seizures )
Past Surgical History: Reports Other
Social History
Tobacco: Smoker (cigars)
Alcohol: Occasional
Family History
Family History: Not pertinent
Allergies / Home Medications
Allergies reflects when Allergies were last updated in [facility].
Home Medications with original date entered in [facility]
Allergy/Medication List:
Allergies
Allergy/AdvReac Type Severity Reaction Status Date / Time
aspirin Allergy facial Verified 05/09/24 20:46
swelling
ezetimibe Allergy Unknown Verified 05/09/24 20:46
simvastatin Allergy Hives Verified 05/09/24 20:46
Home Medications
divalproex 500 mg tablet,delayed release (Depakote) 1,000 mg PO HS 03/22/24
lamotrigine 25 mg tablet 25 mg PO DAILY 03/22/24
quetiapine 150 mg tablet,extended release 24 hr (Seroquel XR) 150 mg PO HS 03/22/24
diazepam 10 mg tablet 20 mg PO HS 05/09/24
diazepam 5 mg tablet 5 mg PO HS 05/09/24
divalproex 500 mg tablet,extended release 24 hr 500 mg PO DAILY 05/09/24
eszopiclone 1 mg tablet 1 mg PO HS 05/09/24
eszopiclone 3 mg tablet 3 mg PO HS 05/09/24
fluvoxamine 25 mg tablet 25 mg PO DAILY 05/09/24
guanfacine 1 mg tablet,extended release 24 hr 1 mg PO HS 05/09/24
hydroxyzine HCl 25 mg tablet 50 mg PO TIDPRN PRN anxiety 05/09/24
lorazepam 0.5 mg tablet 1 mg PO DAILYPRN PRN anxiety 05/09/24
Review of Systems
-
Unable to obtain full review of systems at this time due to: Patient Intubation
A 12 point ROS was completed and negative except as noted: Yes
Physical Exam
Vital Signs
Vital Signs
Temp Pulse Resp BP Pulse Ox
97.1 F 67 14 114/76 100
05/10/24 02:48 05/10/24 02:45 05/10/24 02:30 05/10/24 02:45 05/10/24 02:45
Physical Exam
General: No Apparent Distress and Other (sedated, pupils pinpoint )
HEENT: NormoCephalic and Atraumatic
Respiratory: Clear; No Wheezes
Cardiac: S1/S2 and Regular Rhythm
GI: Soft
Musculoskeletal: No Edema
Skin: Warm and Dry; No Rash
Neuro: Sedated
Psych: Calm
Laboratory Results
-
05/09/24 20:19
05/09/24 20:19
Laboratory Results
PT 13.7 Sec (11.4-14.6) 05/09/24 20:19
INR 1.05 05/09/24 20:19
pH 7.31 (7.35-7.45) L 05/09/24 21:22
pCO2 50 mmHg (35-48) H 05/09/24 21:22
pO2 130 mmHg (83-108) H 05/09/24 21:22
HCO3 25.2 mmol/L (21-28) 05/09/24 21:22
Total Bilirubin 0.4 mg/dl (0.2-1.3) 05/09/24 20:19
AST 66 U/L (17-59) H 05/09/24 20:19
ALT 50 U/L (0-50) 05/09/24 20:19
Alkaline Phosphatase 79 U/L (38-126) 05/09/24 20:19
Troponin I < 0.012 ng/ml 05/09/24 20:19
Data Reviewed
-
Diagnostic Radiology: Report Reviewed by me
Lab Data: Labs Reviewed by me
Impression/Plan
-
Mr. Leon Ravi is a 44 yo man with hx seizures, HTN, anxiety who was brought to the ER by his mother for seizures. He has a history of requiring intubation in past for seizures.
Triage VS: T 98.2, P 80, RR 14, BP 109/70, SpO2 100%
LABS: WBC 6.3, Hg 15.1, PLT 306, Na 140, K+ 5.0, BUN 14, Cr 1.3, Glucose 107, T. Bili 0.4, AST 66, ALT 50, Trop < 0.012
CXR
IMPRESSION:
Endotracheal tube tip projects over the midthoracic trachea.
Nasoenteric tube tip and side-port project over the stomach.
Low lung volumes with a likely left retrocardiac opacity.
Status Epilepticus
-patient has a bed at [facility] (accepting physician Dr. Tennille Arnett) but unfortunately we are waiting on transport. In the meantime, he will be admitted to our ICU
-admit to ICU
-continue current vent settings
-continue IV Propofol gtt
-He is on Divalproex/depakote 500mg QD; 1000mg qPM. He did not get his evening medications. I will give 1G Valproic Acid now and order BID
-obtain valproic acid level
-continue FISHING ACCESSORIES MAKER Diazepam
-FISHING ACCESSORIES MAKER Lamotrigine
-Neurology and Insulation Technician consults
Anxiety
-hold FISHING ACCESSORIES MAKER Seroquel while intubated/sedated
-ativan PRN
-hold FISHING ACCESSORIES MAKER Fluvoxamine (can be related to seizures?)
DVT PPx SCD
FULL CODE
Total Critical Care Time 45 minutes. I was immediately available to the patient and staff. I personally examined, reviewed labs, diagnostic images/reports, interpretations, treatment plans, discussed patient care with other providers and family
or caregivers (if patient is unable to make decisions), entered orders as appropriate and documented the medical record.
[2024-05-10] MEDS: DEPACON 60 MG IV (04:29)
[2024-05-10 04:50] LABS: Magnesium 1.9 mg/dl (1.6-2.3)
[2024-05-10] MEDS: NSS 1000 IV (05:55)
--- NOTE | 2024-05-10 06:06 | PTCARENOTE ---
Received pt. from ED approx 0520
Intubated/sedated
gtt as follows:
Propofol: 30mcg
Fentanyl: 50 mcg
Intubated for airway protection due to status in ED, awaiting transport to [facility].
Arousable, follows commands.
NSR, Normothermic, normotensive, palpable pulses.
[2024-05-10 06:50] LABS: % Basophils 0.7 % (0-2); % Eosinophils 1.2 % (0-6); % Immature Granulocytes 0.2 % (0-0.5); % Lymphocytes 45.2 % (20.5-51.1); % Monocytes 10.4 % (1.7-9.3); % Neutrophils 42.3 % (42.2-75.2); Absolute Eosinophils 0.1 10^3/uL (0-0.7); Absolute Lymphocytes 2.6 10^3/uL (1.2-3.4); Absolute Monocytes 0.6 10^3/uL (0.1-0.6); Absolute Neutrophils 2.4 10^3/uL (1.4-6.5); Hematocrit 36.4 % (39.0-52.0); Mean Corp Hgb Conc. 35.7 g/dL (33.0-37.0); Mean Corpuscular Hgb 30.2 pg (27.0-31.0); Mean Corpuscular Volume 84.7 fL (80.0-94.0); Nucleated Red Blood Cells % 0 % (-); Platelet Count 231 10^3/uL (130-400); Red Cell Dist. Width 13.8 % (11.5-14.5); White Blood Cell Count 5.8 10^3/uL (4.8-10.8)
[2024-05-10 06:55] LABS: ALT (SGPT) 38 U/L (0-50); AST (SGOT) 43 U/L (17-59); Albumin 3.7 g/dl (3.5-5.0); Alkaline Phosphatase 54 U/L (38-126); Blood Urea Nitrogen 12 mg/dl (9-20); Calcium 8.7 mg/dl (8.4-10.2); Carbon Dioxide 23 mmol/L (22-30); Chloride 106 mmol/L (98-107); Estimated Creatinine Clearance 101 ml/min; Glucose 98 mg/dl (70-99); Magnesium 1.8 mg/dl (1.6-2.3); Potassium 4.7 mmol/L (3.5-5.1); Sodium 138 mmol/L (135-145); Total Bilirubin 0.5 mg/dl (0.2-1.3); Total Protein 5.7 g/dl (6.3-8.2); Triglycerides 173 mg/dl (10-149); eGFR > 60.00
[2024-05-10] MEDS: LAMICTAL 25 MG PO (07:51)
[2024-05-10] MEDS: SUBLIMAZE 50 MCG IV (07:52)
--- NOTE | 2024-05-10 08:00 | PTCARENOTE ---
Received pt @ change of shift. Initially lethargic/drowsy upon stimulation, able to follow simple commands/able to DAMIAN/generalized weakness. Pt. became restless/attempting to sit up/pull out ett. Attempted to redirect/reorient pt., CPOT 7. Admin
prn fent x1 and increased fent gtt- see flow sheet. CPOT improved s/p med intervention. PERRLA, pupils 2mm/sluggish b/l. Deviated upward gaze. SR on monitor. SpO2 100% on vent settings AC14/550/.50/+5. Suctioned for scant amt of clear
secretions from ett. Mod amt of thick/clear oral secretions; mouth care provided per protocol. Auscultated dim breath sounds throughout. +BS, abd soft round. L nare NGT in place; flushed/clamped. [place] in place draining clear/yellow urine.
Skin c/d/i. NSS @ 100mL/hr infusing via #22 L wrist. Fent/prop gtts infusing via #18 L AC- see flow sheet. # 18 R hand patent, dressing c/d/i. Safe environment maintained.
[2024-05-10] MEDS: SUBLIMAZE 100 IV (09:57)
--- NOTE | 2024-05-10 10:41 | W.PN.HOSP.TC ---
Today's Communication/Plan
-
Continue with current antiepileptic regimen
Transferred to [facility]
Assessment / Plan
Assessment / Plan
#Status Epilepticus
-patient has a bed at [facility], flight team now here this morning
-continue current vent settings
-continue IV Propofol gtt
-He is on Divalproex/depakote 500mg QD; 1000mg qPM. He did not get his evening medications. I will give 1G Valproic Acid now and order BID
-obtain valproic acid level
-continue FINANCE ATTORNEY Diazepam
-FINANCE ATTORNEY Lamotrigine
-Neurology and Physician Practice Market Manager consults
#Anxiety
-hold FINANCE ATTORNEY Seroquel while intubated/sedated
-ativan PRN
-hold FINANCE ATTORNEY Fluvoxamine (can be related to seizures?)
DVT PPx SCD
FULL CODE
Disposition to [facility] this morning
Anticipated Discharge: Today
Subjective/Interval History
-
Date of Service: May 10, 2024
Seen and examined in the ICU. No acute events since admission.
Currently hemodynamically stable without vasopressor or inotropic support. On mechanical ventilation with A/C 14/550/50/5 with P peak in low 20s. Afebrile as of now.
Minimally responsive on exam, pupils are pinpoint and nonreactive bilaterally. Transfer to [facility] pending
Objective Data
-
Labs:
Laboratory Results
05/10/24
06:34
WBC 5.8
Hgb 13.0
Hct 36.4 L
Plt Count 231 D
Sodium 138
Potassium 4.7
Chloride 106
Carbon Dioxide 23
BUN 12
Creatinine 1.2
Glucose 98
Calcium 8.7
Total Bilirubin 0.5
AST 43
ALT 38
Alkaline Phosphatase 54
Vital Signs:
Vital Signs
Temp Pulse Resp BP Pulse Ox
97.3 F 67 15 111/70 100
05/10/24 10:28 05/10/24 10:03 05/10/24 10:03 05/10/24 10:03 05/10/24 10:03
I&O
05/09/24 05/10/24 05/11/24
06:59 06:59 06:59
Intake Total 506.0 / 506.0
Output Total 700 / 750 100 / 100
Balance -700 / -630.7 406.0 / 406.0
Review of Systems
-
Unable to obtain full review of systems at this time due to: Patient Intubation
Physical Exam
-
General: No Apparent Distress, Comfortable and Intubated
HEENT: Normocephalic, Atraumatic, Moist Mucous Membranes and PERRLA (Pinpoint pupils, minimal reaction bilaterally)
Respiratory: Clear to Auscultation and Non Labored Respirations
Cardiac: Regular Rhythm and S1/S2; Negative Murmur, Rub or Gallop
GI: Soft, Nontender, Nondistended and Normal Bowel Sounds
Musculoskeletal: No Clubbing, No Cyanosis and No Edema
Skin: Warm and Dry; Negative Rash
Neuro: Sedated, Nonfocal/Grossly Intact and Central Nerve's Intact
Data Reviewed
-
Labs: Labs Reviewed by me
--- NOTE | 2024-05-10 10:45 | W.DCSUMMARY ---
Discharge Summary
Discharge Data
Date of Admission: 05/10/24
Date of Discharge: 05/10/24
-
Pending Results: No
Hospital Course
44-year-old male with seizure disorder that presented in status epilepticus. Resumed on IV antiepileptic regimen with Depakote, diazepam, lamotrigine and lorazepam as needed. Required intubation and ICU admission for failure to protect airway.
Neurology evaluated and facilitated transfer to [facility]. Flight team arrived on the morning of 05/10, taken to [facility]. Home medications of Seroquel and fluvoxamine were held, potential for fluvoxamine to worsen seizures.
Discharge Plan
-
Patient Disposition: Acute Care Hospital
Condition: Critical
Discharge Orders:
Discharge Patient (As Directed); Ordered 05/10/24
Ordered By: Seamus Pace
Discharge Date and Time
Print Language: INDONESIAN
--- NOTE | 2024-05-10 10:56 | PTCARENOTE ---
Report given to [facility] BUSINESS INTELLIGENCE ADMINISTRATOR, Joyce @ [phone]. Flight team arrived to ICU @ 1025. Report given to flight team and flight RNs assumed care of pt. to transport via air. Pt. trav'pablo'trav w flight team. called and updated on pt. transport.
No further needs from this RN.
--- NOTE | 2024-05-10 12:12 | CM ---
44 year old adm to icu with status epilecticus.he was intubated.he was transferred today to [facility] neuro icu unit via flight team.
== END 2024-05-10 11:02 | disposition short-term general hospital (02) | DRG 101 ==
LOC: ICU 05:12
PROVIDERS: ADMITTING PHYSICIAN Student in an Organized Health Care Education/Training Program; ATTENDING PHYSICIAN Internal Medicine; EMERGENCY PHYSICIAN Emergency Medicine; FAMILY PHYSICIAN Family Medicine
PROC: 5A1935Z Respiratory Ventilation, Less than 24 Consecutive Hours (ICD-10-PCS; 2024-05-10)
PROC: 0BH17EZ Insertion of Endotracheal Airway into Trachea, Via Natural or Artificial Opening (ICD-10-PCS; 2024-05-10)
DX: G40.901 Epilepsy, unspecified, not intractable, with status epilepticus (principal); F17.290 Nicotine dependence, other tobacco product, uncomplicated; F41.9 Anxiety disorder, unspecified; Z75.1 Person awaiting admission to adequate facility elsewhere
CPT/HCPCS: 31500; 51702; 71045; 80053; 80164; 82805; 83735; 84478; 84484; 85025; 85610; 87070; 93005; 96374; 96375; 99291; 99292

== ENCOUNTER 2024-07-31 10:55 | Emergency (ER) | payer BC, SELFPAY ==
[2024-07-31] VITALS (11 sets, daily range): BP systolic 105–162; BP diastolic 67–110
[2024-07-31 11:01] LABS: Glucose - Point of Care 109 mg/dl (70-99)
[2024-07-31] MEDS: ATIVAN 1 MG IV ×2 (11:04→11:07)
--- NOTE | 2024-07-31 11:21 | ED.GENMED ---
History of Present Illness
<Rebekah Gilbert PA-C - Last Filed: 07/31/24 15:22>
General
Chief Complaint: Change Level of Consciousness
Source: ambulance crew
Exam Limitations: clinical condition
Time Seen by Provider: 07/31/24 11:09
Nursing documentation reviewed up to this point in time: agreed with
History of Present Illness
History of Present Illness:
pt is a 44 y/o M
h/o bipolar d/o, thn, hld
seizure disorder
intubated in april for status and transferred to [facility]
neurologist dr. rajani crowder
i spoke ith pt's papi who was able to provide history that this morning he called her saying that he didn't feel wel
she tried tcalling him back and he didn't answer so she called 911
on arrival for EMS pt was a&ox4 and ambluated to the rig where he was awake and tlaking and then 'passed out' and was just fluttering his eyelids
he had no genearlized seizure activyt
while here he was still not responding to verbal or painful stimuli but it seemed like he was mimimally responsive and then he started gagging and clenching and shaking, leaning to the R, with rigidity
he received 2 mg total of ativan and did not break his activity
at that point i reviewed pmh revealing that he was intubated last time with seizure and transferred to [facility]
i spoke with his who said with each seizure he has been intubated
he has not had any known injuries or missed meds
he is apparently on valium, ativan, depakote, lamictal
Past History
<Rebekah Gilbert PA-C - Last Filed: 07/31/24 15:22>
Past History
ED Past Medical History: HTN, Seizures, Psychiatric (anxiety) and Other (hiatal hernia)
ED Past Surgical History: Orthopedic (Bilateral hip replacement)
Social History
Tobacco: Smoker (cigars)
Alcohol: Occasional
Drug: None
Phy Exam
<Rebekah Gilbert PA-C - Last Filed: 07/31/24 15:22>
Physical Exam
Physical Exam:
GENERAL: Unresponsive, not responsive to painful stimuli, fluttering his eyelids
HEAD: NCAT
EYE: pupils equal and reactive, no nystagmus, eyelid fluttering bilateral
NECK: Supple,full rom, nontender
ENT: o/p clr, mmm.
CARDIAC: Regular rate and rhythm . no edema
LUNGS: Clear breath sounds bilaterally, no acute respiratory distress, no wheezes/rales/rhonchi
ABDOMEN: Soft, without focal tenderness, no r/g, no cvat
NEUROLOGICAL: Unresponsive, breathing, not following commands, , no facial asymmetry, 5/5 strength in UE/LE,
SKIN: Warm and dry, skin intact.
MUSCULOSKELETAL: No edema, well perfused.
PSYCH: Unresponsive
Course
<Rebekah Gilbert PA-C - Last Filed: 07/31/24 15:22>
Orders/Labs/Results
Orders:
Orders
07/31/24 10:56
Succinylcholine Chloride [Succinylcholine] 200 mg .ROUTE .STK-MED ONE
07/31/24 10:57
Electrocardiogram (*1) Urgent
Reason for Study: Syncope
EKG- Treatment ONCE
07/31/24 10:58
Lorazepam [Ativan] 2 mg .ROUTE .STK-MED ONE
07/31/24 11:05
Ondansetron Injectable [Zofran] 4 mg .ROUTE .STK-MED ONE
07/31/24 11:07
Lorazepam [Ativan] 1 mg IV NOW STA
07/31/24 11:16
CT Head W/o Iv Contrast Urgent
Comment:
Reason For Exam: status
Lorazepam [Ativan] 1 mg IV NOW STA
07/31/24 11:17
Complete Blood Count/With Diff Urgent
Comprehensive Metabolic Panel Urgent
Troponin I Urgent
07/31/24 11:19
Lamictal [Lamotrigine (Lamictal)] [S] Urgent
Valproic Acid Level [Depakane] Urgent
07/31/24 11:20
Valproate Sodium [Depacon] 1,000 mg 0.9% Sodium Chloride 50 ml [Nss] 50 ml IV NOW
07/31/24 11:21
Prolactin Urgent
07/31/24 11:25
Ondansetron Injectable [Zofran] 4 mg IV NOW STA
07/31/24 11:30
FentaNYL 1,000 MCG/100 ML [Sublimaze] 1,000 mcg in 100 ml IV PER PROTOCOL
Indication:: Deep Sedation
Begin Infusion:: Now
Goal:: RASS </= -3, BIS 40-60, ventilator synchrony
Maximum dose in mcg/hr:: 300
Continue currently infusing dose and titrate:: Yes
Titration Instructions:: Titrate Q30 min until ventilator synchrony, RASS or BIS goal is met.
Titration Instructions:: If RASS >/= -2 or BIS > 60 or ventilator dyssynchrony:
Titration Instructions:: administer bolus dose and increase infusion by 25 mcg/hr.
Titration Instructions:: Administer analgesia bolus dose(s) & titrate analgesia prior to
Titration Instructions:: adjusting sedation.
Over-sedation Instructions:: if BIS < 40 and pt is synchronous with ventilator, decrease infusion by
Over-sedation Instructions:: 25 mcg/hr every 2 hours until BIS = 40-60.
Over-sedation Instructions:: Do not wean infusion to off if patient is receiving a continuous NMBA or
Over-sedation Instructions:: has received a bolus dose of NMBA within the past 3 hours.
Notify provider:: immediately if pt exhibits signs/symptoms of chest wall rigidity,
Notify provider:: hemodynamic instability, or agitation/pain despite maximum dosing.
Additional Instructions:: Patient MUST be mechanically ventilated.
Fentanyl Citrate/Pf [Sublimaze] 50 mcg IV [id number] PRN
Propofol 1,000,000 Mcg/100 ml [Diprivan] 1,000,000 mcg in 100 ml .ROUTE .STK-MED
Propofol 1,000,000 Mcg/100 ml [Diprivan] 1,000,000 mcg in 100 ml IV PER PROTOCOL
Indication:: Deep Sedation
Begin Infusion:: Now
Goal:: RASS -3 to -5 or BIS < 60 or ventilator synchrony
Maximum dose in mcg/kg/min:: 50
Initial dose based on RASS:: Yes
If RASS is:: +1 or pt hemodynamically unstable (SBP < 90mmHg), initiate at 10 mcg/kg/min
If RASS is:: +2, initiate at 20 mcg/kg/min
If RASS is:: greater than or equal to +3, initiate at 30 mcg/kg/min
Titration Instructions:: Titrate by 5-10 mcg/kg/min every 5 minutes until RASS -3 to -5 or
Titration Instructions:: BIS < 60 or ventilator synchrony is met.
Titration Instructions:: Administer analgesia bolus dose(s) & titrate analgesia prior to
Titration Instructions:: adjusting sedation.
Taper Instructions:: If RASS is at or below goal for 4 consecutive hours decrease infusion by
Taper Instructions:: 5-10 mcg/kg/min every 2 hours. Do not wean infusion to off if patient is
Taper Instructions:: receiving a continuous NMBA or has received bolus NMBA with the past 3 hrs
Over-sedation Instructions:: If BIS < 40 and synchronous with ventilator decrease infusion by
Over-sedation Instructions:: 5-10 mcg/kg/min every 2 hour until BIS = 40-60.
Notify provider:: immediately if patient exhibits signs/symptoms of propofol-related
Notify provider:: infusion syndrome.
Additional Instructions:: Patient MUST be mechanically ventilated and MUST receive analgesia.
07/31/24 11:31
Etomidate [Amidate 20 mg] 20 mg .ROUTE .STK-MED ONE
07/31/24 11:44
CR Chest Portable - 1 View Stat
Comment:
Reason For Exam: Post intubation
Reason Study Needs to be Portable: Patient Unstable
07/31/24 11:50
Etomidate [Amidate 20 mg] 20 mg IV NOW STA
07/31/24 11:53
Propofol [Diprivan] 20 ml .ROUTE .STK-MED
07/31/24 11:58
Succinylcholine Chloride [Anectine] 100 mg IV NOW STA
07/31/24 12:00
ASA Classification Routine
Propofol [Diprivan] 30 mg IV NOW STA
07/31/24 12:12
Triglycerides Routine
Comment: baseline levels with propofol infusion
07/31/24 12:13
ABG [Arterial Blood Gas] Routine
%Oxygen/Room Air: 100
08/01/24 08:00
Polyethylene Glycol Powder [Miralax] 17 grams TUBE DAILY
Abnormal Lab Results
07/31/24 07/31/24 07/31/24
10:57 11:17 11:19
RBC 4.65 L 10^6/uL
(4.70-6.10)
Monocytes % 11.6 H %
(1.7-9.3)
pH
pO2
ABG O2 Sat (Measured)
Potassium 5.5 H mmol/L
(3.5-5.1)
Glucose 107 H mg/dl
(70-99)
Triglycerides
Valproic Acid 37.2 L ug/ml
(50.0-120.0)
POC Glucose 109 H mg/dl
(70-99)
07/31/24 07/31/24
12:12 12:13
RBC
Monocytes %
pH 7.34 L
(7.35-7.45)
pO2 399 H mmHg
(83-108)
ABG O2 Sat (Measured) 100.0 H %
(94-98)
Potassium
Glucose
Triglycerides 311 H mg/dl
(10-149)
Valproic Acid
POC Glucose
07/31/24 11:17
07/31/24 11:17
Vital Signs
Initial and Last Documented VS:
Initial Vital Signs
Temp Pulse Resp BP Pulse Ox
98 F 105 16 146/85 98
07/31/24 10:58 07/31/24 10:58 07/31/24 10:58 07/31/24 10:58 07/31/24 10:58
Last Documented Vital Signs
Temp Pulse Resp BP Pulse Ox
98 F 91 16 117/78 100
07/31/24 10:58 07/31/24 12:30 07/31/24 12:30 07/31/24 12:30 07/31/24 12:44
<Wing Lobato, DO - Last Filed: 07/31/24 11:48>
Orders/Labs/Results
Orders:
Orders
07/31/24 10:56
Succinylcholine Chloride [Succinylcholine] 200 mg .ROUTE .STK-MED ONE
07/31/24 10:57
Electrocardiogram (*1) Urgent
Reason for Study: Syncope
EKG- Treatment ONCE
07/31/24 10:58
Lorazepam [Ativan] 2 mg .ROUTE .STK-MED ONE
07/31/24 11:05
Ondansetron Injectable [Zofran] 4 mg .ROUTE .STK-MED ONE
07/31/24 11:07
Lorazepam [Ativan] 1 mg IV NOW STA
07/31/24 11:16
CT Head W/o Iv Contrast Urgent
Comment:
Reason For Exam: status
Lorazepam [Ativan] 1 mg IV NOW STA
07/31/24 11:17
Complete Blood Count/With Diff Urgent
Comprehensive Metabolic Panel Urgent
Troponin I Urgent
07/31/24 11:19
Lamictal [Lamotrigine (Lamictal)] [S] Urgent
Valproic Acid Level [Depakane] Urgent
07/31/24 11:20
Valproate Sodium [Depacon] 1,000 mg 0.9% Sodium Chloride 50 ml [Nss] 50 ml IV NOW
07/31/24 11:21
Prolactin Urgent
07/31/24 11:25
Ondansetron Injectable [Zofran] 4 mg IV NOW STA
07/31/24 11:30
FentaNYL 1,000 MCG/100 ML [Sublimaze] 1,000 mcg in 100 ml IV PER PROTOCOL
Indication:: Deep Sedation
Begin Infusion:: Now
Goal:: RASS </= -3, BIS 40-60, ventilator synchrony
Maximum dose in mcg/hr:: 300
Continue currently infusing dose and titrate:: Yes
Titration Instructions:: Titrate Q30 min until ventilator synchrony, RASS or BIS goal is met.
Titration Instructions:: If RASS >/= -2 or BIS > 60 or ventilator dyssynchrony:
Titration Instructions:: administer bolus dose and increase infusion by 25 mcg/hr.
Titration Instructions:: Administer analgesia bolus dose(s) & titrate analgesia prior to
Titration Instructions:: adjusting sedation.
Over-sedation Instructions:: if BIS < 40 and pt is synchronous with ventilator, decrease infusion by
Over-sedation Instructions:: 25 mcg/hr every 2 hours until BIS = 40-60.
Over-sedation Instructions:: Do not wean infusion to off if patient is receiving a continuous NMBA or
Over-sedation Instructions:: has received a bolus dose of NMBA within the past 3 hours.
Notify provider:: immediately if pt exhibits signs/symptoms of chest wall rigidity,
Notify provider:: hemodynamic instability, or agitation/pain despite maximum dosing.
Additional Instructions:: Patient MUST be mechanically ventilated.
Fentanyl Citrate/Pf [Sublimaze] 50 mcg IV [id number] PRN
Propofol 1,000,000 Mcg/100 ml [Diprivan] 1,000,000 mcg in 100 ml .ROUTE .STK-MED
Propofol 1,000,000 Mcg/100 ml [Diprivan] 1,000,000 mcg in 100 ml IV PER PROTOCOL
Indication:: Deep Sedation
Begin Infusion:: Now
Goal:: RASS -3 to -5 or BIS < 60 or ventilator synchrony
Maximum dose in mcg/kg/min:: 50
Initial dose based on RASS:: Yes
If RASS is:: +1 or pt hemodynamically unstable (SBP < 90mmHg), initiate at 10 mcg/kg/min
If RASS is:: +2, initiate at 20 mcg/kg/min
If RASS is:: greater than or equal to +3, initiate at 30 mcg/kg/min
Titration Instructions:: Titrate by 5-10 mcg/kg/min every 5 minutes until RASS -3 to -5 or
Titration Instructions:: BIS < 60 or ventilator synchrony is met.
Titration Instructions:: Administer analgesia bolus dose(s) & titrate analgesia prior to
Titration Instructions:: adjusting sedation.
Taper Instructions:: If RASS is at or below goal for 4 consecutive hours decrease infusion by
Taper Instructions:: 5-10 mcg/kg/min every 2 hours. Do not wean infusion to off if patient is
Taper Instructions:: receiving a continuous NMBA or has received bolus NMBA with the past 3 hrs
Over-sedation Instructions:: If BIS < 40 and synchronous with ventilator decrease infusion by
Over-sedation Instructions:: 5-10 mcg/kg/min every 2 hour until BIS = 40-60.
Notify provider:: immediately if patient exhibits signs/symptoms of propofol-related
Notify provider:: infusion syndrome.
Additional Instructions:: Patient MUST be mechanically ventilated and MUST receive analgesia.
07/31/24 11:31
Etomidate [Amidate 20 mg] 20 mg .ROUTE .STK-MED ONE
07/31/24 11:44
CR Chest Portable - 1 View Stat
Comment:
Reason For Exam: Post intubation
Reason Study Needs to be Portable: Patient Unstable
07/31/24 11:50
Etomidate [Amidate 20 mg] 20 mg IV NOW STA
07/31/24 11:53
Propofol [Diprivan] 20 ml .ROUTE .STK-MED
07/31/24 11:58
Succinylcholine Chloride [Anectine] 100 mg IV NOW STA
07/31/24 12:00
ASA Classification Routine
Propofol [Diprivan] 30 mg IV NOW STA
07/31/24 12:12
Triglycerides Routine
Comment: baseline levels with propofol infusion
07/31/24 12:13
ABG [Arterial Blood Gas] Routine
%Oxygen/Room Air: 100
08/01/24 08:00
Polyethylene Glycol Powder [Miralax] 17 grams TUBE DAILY
Abnormal Lab Results
07/31/24 07/31/24 07/31/24
10:57 11:17 11:19
RBC 4.65 L 10^6/uL
(4.70-6.10)
Monocytes % 11.6 H %
(1.7-9.3)
pH
pO2
ABG O2 Sat (Measured)
Potassium 5.5 H mmol/L
(3.5-5.1)
Glucose 107 H mg/dl
(70-99)
Triglycerides
Valproic Acid 37.2 L ug/ml
(50.0-120.0)
POC Glucose 109 H mg/dl
(70-99)
07/31/24 07/31/24
12:12 12:13
RBC
Monocytes %
pH 7.34 L
(7.35-7.45)
pO2 399 H mmHg
(83-108)
ABG O2 Sat (Measured) 100.0 H %
(94-98)
Potassium
Glucose
Triglycerides 311 H mg/dl
(10-149)
Valproic Acid
POC Glucose
07/31/24 11:17
07/31/24 11:17
Vital Signs
Initial and Last Documented VS:
Initial Vital Signs
Temp Pulse Resp BP Pulse Ox
98 F 105 16 146/85 98
07/31/24 10:58 07/31/24 10:58 07/31/24 10:58 07/31/24 10:58 07/31/24 10:58
Last Documented Vital Signs
Temp Pulse Resp BP Pulse Ox
98 F 91 16 117/78 100
07/31/24 10:58 07/31/24 12:30 07/31/24 12:30 07/31/24 12:30 07/31/24 12:44
Procedures
<Wing Lobato DO - Last Filed: 07/31/24 11:48>
Intubations
Procedure completed by: Dr. Cheryle Tobin
Tube size (cm): 8.0
Placement confirmed by: capnography
Breath sounds after intubation: equal
Intubation complications: no complications
Additional information:
Intubated in 1 attempt without difficulty with glide scope after using etomidate 20 mg and succinylcholine 100 mg
<Rebekah Gilbert PA-C - Last Filed: 07/31/24 15:22>
MDM/Problems Addressed
Differential Diagnosis Includes:
Status epilepticus, head bleed,
MDM/Problems Addressed:
44-year-old male with a significant seizure history disorder, requiring intubation several times for status epilepticus presents after he called for his called 911 after he said he was not feeling well. Patient initially told EMS that it did
not feel like he was going to have a seizure. He was awake and alert and able to walk to the ambulance but en route lost consciousness but was not observed to be having any seizure-like activity noted on arrival was breathing on his own, stable
vitals but fluttering his eyelids. It seem like maybe he was minimally responsive but ultimately became rigid gagging, leaning to the right and shaking more pronounced on his right side than his left. He received several doses of Ativan in order
to Depakote load however given his high risk nature of status epilepticus requiring intubation in the past he was intubated by my attending and I initiated transfer to [facility] after speaking with our neurologist Dr. stevens who recommended
transfer. He was accepted by Dr. Rossi. He is on a propofol drip
<Wing Lobato DO - Last Filed: 07/31/24 11:48>
*Critical Care Note
Total Time (30-74mins, 75-104mins- exclusive of procedures): 60min
comment:
Patient was seen immediately upon arrival. Continues to have some seizure-like activity. He was intubated for airway protection (billed separately). His vital signs were closely monitored before and after intubation.
ED Attending Note
<Rebekah Gilbert PA-C - Last Filed: 07/31/24 15:22>
-
Portions of this chart may have been created with voice recognition software.� Occasional wrong word or��sound alike� substitutions may have occurred due to the inherent limitations of voice recognition software.
<Wing Lobato DO - Last Filed: 07/31/24 11:48>
ED Attending Note
Patient seen and examined by attending physician: Yes
I performed the substantive portion of visit, reviewed & personally made and approve the management plan that is documented in note by myself or ELEANOR.: Yes
ED Attending Note:
I evaluated the patient at bedside. The patient continued to have seizure-like activity despite rounds of Ativan. I reviewed medication list which includes Depakote. I have ordered IV Depacon here. He was placed on propofol after intubation with
etomidate and succinylcholine.
Discharge Plan
Departure
Patient Disposition: [facility]
Date of Disposition: 07/31/24
Time of Disposition: 11:51
Patient with high blood pressure during this ER visit?: No
Condition: Critical
Discharge Problem:
Epilepsy with status epilepticus
Prescriptions:
No Action
divalproex [Depakote] 500 mg Tablet,Delayed Release (Dr/Ec)
1,000 mg PO HS
lamotrigine 25 mg Tablet
25 mg PO DAILY
quetiapine [Seroquel XR] 150 mg Tablet Extended Release 24 Hr
150 mg PO HS
lorazepam 0.5 mg tablet
1 mg PO DAILYPRN PRN (Reason: anxiety)
Patient Comments:
05/09/2024: last filled 03/12/24, 60 tabs for 30 days from [facility]
fluvoxamine 25 mg tablet
25 mg PO DAILY
divalproex 500 mg tablet extended release 24 hr
500 mg PO DAILY
hydroxyzine HCl 25 mg tablet
50 mg PO TIDPRN PRN (Reason: anxiety)
diazepam 10 mg tablet
20 mg PO HS
Patient Comments:
05/09/2024: Taken w/ 5mg = 25mg; last filled 04/08/24, 60 tabs for 15 days from [facility]
diazepam 5 mg tablet
5 mg PO HS
Patient Comments:
05/09/2024: Taken w/ 20mg = 25mg; last filled 04/22/24, 30 tabs for 30 days from [facility]
eszopiclone 3 mg tablet
3 mg PO HS
Patient Comments:
05/09/2024: taken w/ 1mg = 4mg
eszopiclone 1 mg tablet
1 mg PO HS
Patient Comments:
05/09/2024: taken w/ 3mg = 4mg
guanfacine 1 mg tablet extended release 24 hr
1 mg PO HS
Hospital Transfer
Other hospital: [facility]
I certify that the patient requires transfer: Yes
Discussed case with accepting physician: jakcy
Reason for transfer: higher level of care
Interventions
Interventions:
*Risk Screen - Suicide Last Done: 07/31/24 11:02
*General Assessment Last Done: 07/31/24 11:02
*Neglect/Abuse Screening Last Done: 07/31/24 11:02
ED- Fall Risk Assessment Last Done: 07/31/24 12:50
*ED COVID-19 Vaccine History Last Done: 07/31/24 11:02
*Nursing Disposition Last Done: 07/31/24 12:50
ED- Cardiac Assessment Last Done: 07/31/24 11:26
ED- Neurological Assessment Last Done: 07/31/24 11:26
ED-Psychological Assessment Last Done: 07/31/24 11:26
ED- Pulmonary Assessment Last Done: 07/31/24 11:26
Discharge Date and Time
Discharge Date/Time: 07/31/24 13:07
Print Language: LATVIAN
[2024-07-31 11:24] LABS: % Basophils 0.9 % (0-2); % Eosinophils 1.1 % (0-6); % Immature Granulocytes 0.2 % (0-0.5); % Lymphocytes 43.8 % (20.5-51.1); % Monocytes 11.6 % (1.7-9.3); % Neutrophils 42.4 % (42.2-75.2); Absolute Basophils 0.1 10^3/uL (0-0.2); Absolute Eosinophils 0.1 10^3/uL (0-0.7); Absolute Lymphocytes 2.3 10^3/uL (1.2-3.4); Absolute Monocytes 0.6 10^3/uL (0.1-0.6); Absolute Neutrophils 2.2 10^3/uL (1.4-6.5); Hematocrit 41.5 % (39.0-52.0); Hemoglobin 14.3 g/dL (13.0-18.0); Mean Corp Hgb Conc. 34.5 g/dL (33.0-37.0); Mean Corpuscular Hgb 30.8 pg (27.0-31.0); Mean Corpuscular Volume 89.2 fL (80.0-94.0); Mean Platelet Volume 8.9 fL (7.4-10.4); Nucleated Red Blood Cells % 0 % (-); Platelet Count 338 10^3/uL (130-400); Red Blood Cell Count 4.65 10^6/uL (4.70-6.10); White Blood Cell Count 5.3 10^3/uL (4.8-10.8)
[2024-07-31] MEDS: ZOFRAN 4 MG IV (11:25)
[2024-07-31] MEDS: DIPRIVAN 100 IV (11:43)
[2024-07-31] MEDS: DEPACON 60 MG IV (11:44)
[2024-07-31] MEDS: AMIDATE 20 MG IV (11:50)
[2024-07-31 11:55] LABS: ALT (SGPT) 22 U/L (0-50); AST (SGOT) 31 U/L (17-59); Albumin 4.6 g/dl (3.5-5.0); Alkaline Phosphatase 106 U/L (38-126); Blood Urea Nitrogen 16 mg/dl (9-20); Calcium 9.3 mg/dl (8.4-10.2); Carbon Dioxide 24 mmol/L (22-30); Chloride 103 mmol/L (98-107); Glucose 107 mg/dl (70-99); Potassium 5.5 mmol/L (3.5-5.1); Sodium 139 mmol/L (135-145); Total Bilirubin 0.3 mg/dl (0.2-1.3); Total Protein 7.1 g/dl (6.3-8.2); eGFR > 60.00
[2024-07-31] MEDS: ANECTINE 100 MG IV (11:58)
[2024-07-31] MEDS: DIPRIVAN 30 MG IV (12:02)
[2024-07-31 12:03] LABS: Troponin I < 0.012 ng/ml
[2024-07-31 12:03] LABS: Depakane 37.2 ug/ml (50.0-120.0)
[2024-07-31 12:08] LABS: Prolactin 12.4 ng/ml (3.7-17.9)
[2024-07-31 12:24] LABS: B.E. -4.4 mmol/L; PCO2 39 mmHg (35-48); PO2 399 mmHg (83-108); pH 7.34 (7.35-7.45)
[2024-07-31 12:30] LABS: Triglycerides 311 mg/dl (10-149)
== END 2024-07-31 13:07 | disposition short-term general hospital (02) ==
LOC: EMR 10:55
PROVIDERS: Emergency Medicine; Physician Assistant; EMERGENCY PHYSICIAN Emergency Medicine
DX: G40.909 Epilepsy, unspecified, not intractable, without status epilepticus (principal); F31.9 Bipolar disorder, unspecified; I10 Essential (primary) hypertension; E78.00 Pure hypercholesterolemia, unspecified; K44.9 Diaphragmatic hernia without obstruction or gangrene; F17.290 Nicotine dependence, other tobacco product, uncomplicated; Z46.82 Encounter for fitting and adjustment of non-vascular catheter; Z96.643 Presence of artificial hip joint, bilateral
CPT/HCPCS: 99285; 31500; 96374; 96375; 96376; 70450; 71045; 80053; 80164; 80175; 82805; 82962; 84146; 84478; 84484; 85025; 93005

== ENCOUNTER 2024-10-09 14:33 | Emergency (ER) | payer BC, SELFPAY ==
[2024-10-09 14:44] VITALS: BP 142/97
--- NOTE | 2024-10-09 14:44 | ED.GENMED ---
ED Provider Triage
-
Patient seen by provider in Triage?: Seen in Triage
Attestation: A medical screening examination has been initiated by a qualified medical provider. Based on the assessment performed at this time, it has been determined that an emergent medical condition may exist and the patient has been informed
that further medical evaluation and possible additional diagnostic testing may be needed.
HPI: 44-year-old male presenting to the emergency department for evaluation of atraumatic left hand pain and swelling over the weekend, worsening today. Family history of gout and patient concern for this. Notes that he cut his left hand in
May and is not sure if this is related. Patient did have a fever of 100.7 last night that was treated with Tylenol. He was also seen at [facility] and started on Augmentin which she has been taking.. Labs and x-ray imaging
ordered. Patient otherwise stable
GENERAL: Alert , in no apparent distress
EYE: No visual abnormalities.
NECK: Trachea midline
ENT: No visible abnormalities.
LUNGS: No acute respiratory distress
NEUROLOGICAL: Alert and oriented
SKIN: Skin intact. No visible changes.
MUSCULOSKELETAL: Moving extremities normally
PSYCH: Normal and appropriate interaction.
This is a medical evaluation conducted in person to initiate diagnostic evaluation and provide initial therapeutics. Please see further documentation by the treating clinician.
History of Present Illness
General
Chief Complaint: Extremity Pain (non-traumatic)
Time Seen by Provider: 10/09/24 17:32
Past History
Past History
ED Past Medical History: HTN, Seizures, Psychiatric (anxiety) and Other (hiatal hernia)
ED Past Surgical History: Orthopedic (Bilateral hip replacement)
Social History
Tobacco: Smoker (cigars)
Alcohol: Occasional
Drug: None
Course
Orders/Labs/Results
Orders:
Orders
10/09/24 14:45
CR Hand - Left Min 3 Views Urgent
Comment:
Reason For Exam: pain/edema around dorsum and 2nd digit
10/09/24 15:05
Basic Metabolic Panel Urgent
C-Reactive Protein Urgent
Comment: ADD ON
Complete Blood Count/With Diff Urgent
Erythrocyte Sed Rate Urgent
Comment: ADD ON
Uric Acid Urgent
10/09/24 18:09
Add On- LAB Urgent
Tests Added?: sed rate, CRP
10/09/24 19:34
Wound Culture [Wound/Abscess/Other Culture] Urgent
ELTON Source: Hand
Specimen Description: Left
Date Specimen was Collected: 10/09/24
Time Specimen was Collected: 19:33
10/09/24 19:35
Sling Left-Treatment ONCE
Abnormal Lab Results
10/09/24
15:05
Absolute Monos (auto) 0.9 H 10^3/uL
(0.1-0.6)
Monocytes % 13.4 H %
(1.7-9.3)
Glucose 105 H mg/dl
(70-99)
Uric Acid 2.5 L mg/dl
(3.5-8.5)
C-Reactive Protein 50.20 H mg/L
(0.0-10.00)
10/09/24 15:05
10/09/24 15:05
Vital Signs
Initial and Last Documented VS:
Initial Vital Signs
Temp Pulse Resp BP Pulse Ox
97.6 F 107 18 142/97 98
10/09/24 14:44 10/09/24 14:44 10/09/24 14:44 10/09/24 14:44 10/09/24 14:44
Last Documented Vital Signs
Temp Pulse Resp BP Pulse Ox
97.6 F 92 18 130/77 99
10/09/24 14:44 10/09/24 16:19 10/09/24 16:19 10/09/24 16:19 10/09/24 16:19
ED Attending Note
-
Portions of this chart may have been created with voice recognition software.� Occasional wrong word or��sound alike� substitutions may have occurred due to the inherent limitations of voice recognition software.
Discharge Plan
Departure
Patient Disposition: Home (Routine Discharge)
Date of Disposition: 10/09/24
Time of Disposition: 19:32
Patient with high blood pressure during this ER visit?: No
Condition: Good
Covid-19: Not Applicable
Discharge Problem:
Cellulitis and abscess of hand
Prescriptions:
No Action
divalproex [Depakote] 500 mg Tablet,Delayed Release (Dr/Ec)
1,000 mg PO HS
lamotrigine 25 mg Tablet
25 mg PO DAILY
quetiapine [Seroquel XR] 150 mg Tablet Extended Release 24 Hr
150 mg PO HS
lorazepam 0.5 mg tablet
1 mg PO DAILYPRN PRN (Reason: anxiety)
Patient Comments:
05/09/2024: last filled 03/12/24, 60 tabs for 30 days from [facility]
fluvoxamine 25 mg tablet
25 mg PO DAILY
divalproex 500 mg tablet extended release 24 hr
500 mg PO DAILY
hydroxyzine HCl 25 mg tablet
50 mg PO TIDPRN PRN (Reason: anxiety)
diazepam 10 mg tablet
20 mg PO HS
Patient Comments:
05/09/2024: Taken w/ 5mg = 25mg; last filled 04/08/24, 60 tabs for 15 days from [facility]
diazepam 5 mg tablet
5 mg PO HS
Patient Comments:
05/09/2024: Taken w/ 20mg = 25mg; last filled 04/22/24, 30 tabs for 30 days from [facility]
eszopiclone 3 mg tablet
3 mg PO HS
Patient Comments:
05/09/2024: taken w/ 1mg = 4mg
eszopiclone 1 mg tablet
1 mg PO HS
Patient Comments:
05/09/2024: taken w/ 3mg = 4mg
guanfacine 1 mg tablet extended release 24 hr
1 mg PO HS
Referrals:
Mark Cook MD [Active] - Tomorrow
Dai Dumont DO [Family Provider] -
Activity Restrictions/Additional Instructions:
Continue the Bactrim and Keflex as prescribed. Keep your hand elevated. Warm compresses to your hand 15-20 minutes at a time, 4-5 times daily. Return to the emergency department immediately for any changes in/worsening of your symptoms.
Call the office of Dr Cook in the AM. Tell the office that I spoke with Dr. Erna ayala and he recommended you be seen in the office by Dr. Cook or Dr. Leigh tomorrow
Interventions
Interventions:
*Risk Screen - Suicide Last Done: 10/09/24 14:44
*General Assessment Last Done: 10/09/24 14:44
*Neglect/Abuse Screening Last Done: 10/09/24 14:44
*ED COVID-19 Vaccine History Last Done: 10/09/24 17:05
*Nursing Disposition Last Done: 10/09/24 19:46
ED-Skin Assessment Last Done: 10/09/24 17:05
ED-Peripheral Vascular Assessment Last Done: 10/09/24 17:05
ED-Musculoskeletal Assessment Last Done: 10/09/24 17:05
Discharge Date and Time
Discharge Date/Time: 10/09/24 19:47
Print Language: [id number]
[2024-10-09 15:17] LABS: % Basophils 0.4 % (0-2); % Eosinophils 0.3 % (0-6); % Immature Granulocytes 0.1 % (0-0.5); % Lymphocytes 21.3 % (20.5-51.1); % Monocytes 13.4 % (1.7-9.3); % Neutrophils 64.5 % (42.2-75.2); Absolute Lymphocytes 1.5 10^3/uL (1.2-3.4); Absolute Monocytes 0.9 10^3/uL (0.1-0.6); Absolute Neutrophils 4.4 10^3/uL (1.4-6.5); Hemoglobin 14.3 g/dL (13.0-18.0); Mean Corp Hgb Conc. 34.9 g/dL (33.0-37.0); Mean Corpuscular Hgb 29.1 pg (27.0-31.0); Mean Corpuscular Volume 83.5 fL (80.0-94.0); Mean Platelet Volume 8.9 fL (7.4-10.4); Nucleated Red Blood Cells % 0 % (-); Platelet Count 209 10^3/uL (130-400); Red Blood Cell Count 4.91 10^6/uL (4.70-6.10); Red Cell Dist. Width 12.9 % (11.5-14.5); White Blood Cell Count 6.8 10^3/uL (4.8-10.8)
[2024-10-09 15:34] LABS: Blood Urea Nitrogen 9 mg/dl (9-20); Calcium 8.6 mg/dl (8.4-10.2); Carbon Dioxide 23 mmol/L (22-30); Chloride 105 mmol/L (98-107); Glucose 105 mg/dl (70-99); Potassium 4.5 mmol/L (3.5-5.1); Sodium 138 mmol/L (135-145); Uric Acid 2.5 mg/dl (3.5-8.5); eGFR > 60.00
[2024-10-09 16:19] VITALS: BP 130/77
[2024-10-09 18:30] LABS: Erythrocyte Sed Rate 5 mm/hour (0-20)
== END 2024-10-09 19:47 | disposition home or self-care (01) ==
LOC: EMR 14:33
PROVIDERS: Physician Assistant Medical; EMERGENCY PHYSICIAN Emergency Medicine; FAMILY PHYSICIAN Family Medicine
DX: L02.512 Cutaneous abscess of left hand (principal); L03.116 Cellulitis of left lower limb; F17.290 Nicotine dependence, other tobacco product, uncomplicated
CPT/HCPCS: 99284; 73130; 80048; 84550; 85025; 85652; 86140; 87070; 87205

== ENCOUNTER 2024-10-15 06:17 | Day surgery (SDC) | payer BC, SELFPAY ==
[2024-10-15] VITALS (7 sets, daily range): BP systolic 105–122; BP diastolic 64–78; BMI 31.4
[2024-10-15] MEDS: TYLENOL 1000 MG PO (08:11)
[2024-10-15] MEDS: NORMOSOL-R/PLASMALYTE-A 1000 IV (08:22)
[2024-10-15 08:25] LABS: Glucose - Point of Care 111 mg/dl (70-99)
[2024-10-15 10:25] LABS: Glucose - Point of Care 96 mg/dl (70-99)
[2024-10-15 11:13] LABS: Glucose - Point of Care 93 mg/dl (70-99)
== END 2024-10-15 12:40 | disposition home or self-care (01) ==
LOC: SDS 06:17
PROVIDERS: ATTENDING PHYSICIAN Orthopaedic Surgery
PROC: 0JBK0ZZ Excision of Left Hand Subcutaneous Tissue and Fascia, Open Approach (ICD-10-PCS; 2024-10-15)
DX: L08.9 Local infection of the skin and subcutaneous tissue, unspecified (principal); E11.9 Type 2 diabetes mellitus without complications; Z88.6 Allergy status to analgesic agent
CPT/HCPCS: 11042; 82962

== ENCOUNTER 2025-01-10 06:01 | Emergency (ER) | payer BC, SELFPAY ==
[2025-01-10 06:11] VITALS: BP 120/82
--- NOTE | 2025-01-10 06:24 | ED.GENMED ---
History of Present Illness
<Lauri Rodarte MD, Resident - Last Filed: 01/10/25 10:38>
General
Chief Complaint: Eye Problems
Time Seen by Provider: 01/10/25 06:22
History of Present Illness
History of Present Illness:
This is a 44-year-old male who past medical history of T2DM who presents to the ER complaining of pain and redness in the left eye compared to the right eye. Patient reports 2 weeks ago he was diagnosed with conjunctivitis at the urgent care due to
bilateral eye pain and redness. At that time in the urgent care, he was prescribed polymyxin eyedrop. Reports redness and pain improved after starting polymyxin. He went for further eye evaluation at [facility], although unsure if
he saw Residence Supervisor or Edge Trimming Machine Operator, but reports he was given the all clear. Patient reports symptoms continue to improve with Polymyxin use but suddenly worsened yesterday. He reports left eye redness and pain symptom returned. He denies watery,
mucus, purulent discharge. He denies light sensitivity. He denies blurry vision, vision changes. He denies trauma or foreign body sensation to the eyes. He denies fever, URI. He denies seasonal allergies.
Past History
<Lauri Rodarte MD, Resident - Last Filed: 01/10/25 10:38>
Past History
ED Past Medical History: HTN, Seizures, Psychiatric (anxiety) and Other (hiatal hernia)
ED Past Surgical History: Orthopedic (Bilateral hip replacement)
Social History
Tobacco: Smoker (cigars)
Alcohol: Occasional
Drug: None
Review of Systems
<Lauri Rodarte MD, Resident - Last Filed: 01/10/25 10:38>
Review of Systems
All Other Systems: ROS reviewed and negative except as documented in HPI and ROS
Phy Exam
<Lauri Rodarte MD, Resident - Last Filed: 01/10/25 10:38>
General Physical Exam
General Presentation: well appearing and no apparent distress
ENT Exam
ENT Exam: EOMI and other
Eye Exam
Eye Exam: PERRL, EOMI and other (Eyelids without swelling or trauma. Erythematous conjunctiva more prominent on the left, visual acuity is 20/30 both eyes)
Pulmonary Exam
Pulmonary Exam: lungs clear and no respiratory distress
Neurological Exam
Neurological Exam: alert and oriented x3
Course
<Lauri Rodarte MD, Resident - Last Filed: 01/10/25 10:38>
Orders/Labs/Results
Orders:
Orders
01/10/25 08:24
Fluorescein Sodium [Ful-Savi] 1 mg .ROUTE .STK-MED ONE
01/10/25 08:26
Fluorescein Sodium [Ful-Savi] 1 mg .ROUTE .STK-MED ONE
Tetracaine HCl [Tetracaine 0.5% Ophthalmic Solution] 1 drop .ROUTE .STK-MED ONE
Vital Signs
Initial and Last Documented VS:
Initial Vital Signs
Temp Pulse Resp BP Pulse Ox
97.8 F 86 16 120/82 98
01/10/25 06:11 01/10/25 06:11 01/10/25 06:11 01/10/25 06:11 01/10/25 06:11
Last Documented Vital Signs
Temp Pulse Resp BP Pulse Ox
97.8 F 80 16 118/75 98
01/10/25 06:11 01/10/25 08:40 01/10/25 08:40 01/10/25 08:40 01/10/25 08:40
<Ozzy Solitario, - Last Filed: 01/10/25 08:42>
Orders/Labs/Results
Orders:
Orders
01/10/25 08:24
Fluorescein Sodium [Ful-Savi] 1 mg .ROUTE .STK-MED ONE
01/10/25 08:26
Fluorescein Sodium [Ful-Savi] 1 mg .ROUTE .STK-MED ONE
Tetracaine HCl [Tetracaine 0.5% Ophthalmic Solution] 1 drop .ROUTE .STK-MED ONE
Vital Signs
Initial and Last Documented VS:
Initial Vital Signs
Temp Pulse Resp BP Pulse Ox
97.8 F 86 16 120/82 98
01/10/25 06:11 01/10/25 06:11 01/10/25 06:11 01/10/25 06:11 01/10/25 06:11
Last Documented Vital Signs
Temp Pulse Resp BP Pulse Ox
97.8 F 80 16 118/75 98
01/10/25 06:11 01/10/25 08:40 01/10/25 08:40 01/10/25 08:40 01/10/25 08:40
<Lauri Rodarte MD, Resident - Last Filed: 01/10/25 10:38>
MDM/Problems Addressed
MDM/Problems Addressed:
This is a 44-year-old male who past medical history of T2DM who presents to the ER complaining of pain and redness in the left eye compared to the right eye. On physical examination, eyelids without swelling, EOMI, pupils equal round reactive to
light, visual acuities 20/30 both eyes. Will start on ofloxacin eyedrops. Follow-up with clinical application manager as an outpatient.
<Lauri Rodarte MD, Resident - Last Filed: 01/10/25 10:38>
*Critical Care Note
Total Time (30-74mins, 75-104mins- exclusive of procedures): Not Applicable
ED Attending Note
<Lauri Rodarte MD, Resident - Last Filed: 01/10/25 10:38>
-
Portions of this chart may have been created with voice recognition software.� Occasional wrong word or��sound alike� substitutions may have occurred due to the inherent limitations of voice recognition software.
<Ozzy Solitario, DO - Last Filed: 01/10/25 08:42>
ED Attending Note
Patient seen and examined by attending physician: Yes
I performed a history and physical exam of patient and discussed management with resident, I reviewed resident's note and agree with documented findings and plan of care.: Yes
ED Attending Note:
I have reviewed and agree with history and treatment plan by Lauri Rodarte MD. My exam revealed 43-year-old male in no acute distress. Eye exam: PERRLA, injected conjunctiva bilaterally. Improved with Alcaine administration. Possible
conjunctivitis. No foreign body or abrasion seen on corneal staining. Pressure right side 9, left side 9. Follow-up with ophthalmology. Treat with ofloxacin drops.
Discharge Plan
Departure
Patient Disposition: Home (Routine Discharge)
Date of Disposition: 01/10/25
Time of Disposition: 08:18
Patient with high blood pressure during this ER visit?: No
Discharge Problem:
conjuctivitis
Prescriptions:
New
moxifloxacin 0.5 % drops
1 drp ophthalmic (eye) TID 7 Days Qty: 3 0RF
No Action
divalproex [Depakote] 500 mg Tablet,Delayed Release (Dr/Ec)
500 mg PO TID
diazepam 10 mg tablet
10 mg PO TID
Patient Comments:
05/09/2024: Taken w/ 5mg = 25mg; last filled 04/08/24, 60 tabs for 15 days from [facility]
lamotrigine [Lamictal] 200 mg Tablet
200 mg PO DAILY
hydroxyzine HCl 50 mg Tablet
50 mg PO QID
temazepam 30 mg Capsule
30 mg PO HS PRN (Reason: sleep)
levothyroxine 50 mcg Tablet
50 mcg PO DAILY
diphenhydramine HCl [Benadryl] 25 mg Capsule
25 mg PO PRN PRN (Reason: hives)
lisinopril 10 mg Tablet
10 mg PO DAILY
azelastine 137 mcg (0.1 %) [place],Non-Aerosol
2 spray INTRANASAL HS
metformin 500 mg Tablet Extended Release 24hr
500 mg PO BID
quetiapine [Seroquel XR] 150 mg Tablet Extended Release 24 Hr
150 mg PO HS
Ozempic 1 mg/dose (4 mg/3 mL) Pen Injector
1 mg SC MO
magnesium 250 mg tablet
500 mg PO HS
Referrals:
Concepción Dahl MD [Active] - Call in 1-3 days for appt
Stand Alone Forms: Return to Work
Activity Restrictions/Additional Instructions:
Please return for any worsening symptoms.
You may return at any time if you have further concerns.
Please follow up with the clinical application manager at the first available appointment, preferably this week.
Start moxifloxacin 0.5% ophthalmic eyedrop. 1 drop to the left eye 3 times a day for the next 5 to 7 days.
Thank you for choosing [facility].
Interventions
Interventions:
*Risk Screen - Suicide Last Done: 01/10/25 06:11
*General Assessment Last Done: 01/10/25 06:11
*Neglect/Abuse Screening Last Done: 01/10/25 06:11
*ED- Fall Risk Assessment Last Done: 01/10/25 06:11
*ED COVID-19 Vaccine History Last Done: 01/10/25 06:11
*Nursing Disposition Last Done: 01/10/25 08:40
Discharge Date and Time
Discharge Date/Time: 01/10/25 08:41
Print Language: BERMUDIAN
[2025-01-10 08:40] VITALS: BP 118/75
== END 2025-01-10 08:41 | disposition home or self-care (01) ==
LOC: EMR 06:01
PROVIDERS: EMERGENCY PHYSICIAN Emergency Medicine; FAMILY PHYSICIAN Family Medicine
DX: H10.9 Unspecified conjunctivitis (principal); E11.9 Type 2 diabetes mellitus without complications; F41.9 Anxiety disorder, unspecified; I10 Essential (primary) hypertension; F17.290 Nicotine dependence, other tobacco product, uncomplicated; Z96.643 Presence of artificial hip joint, bilateral
CPT/HCPCS: 99283

== ENCOUNTER 2025-01-19 19:45 | Emergency (ER) | payer BC, SELFPAY ==
[2025-01-19 19:50] VITALS: BP 138/83
[2025-01-19 21:18] VITALS: BP 125/78
[2025-01-19 21:21] VITALS: BMI 29.4
--- NOTE | 2025-01-19 21:44 | ED.GENMED ---
History of Present Illness
General
Chief Complaint: Abdominal Pain
Source: patient
Exam Limitations: none
Time Seen by Provider: 01/19/25 21:22
Nursing documentation reviewed up to this point in time: agreed with
History of Present Illness
History of Present Illness:
Pleasant 44-year-old male that presents to the emergency department with abdominal burning. He states that it only occurs when he is working out. When he stops working out, the symptoms resolve. Patient denies any current symptoms. He states
that the pain is not reproducible unless he is working out. 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
Past History
Past History
ED Past Medical History: HTN, Seizures, Psychiatric (anxiety) and Other (hiatal hernia)
ED Past Surgical History: Orthopedic (Bilateral hip replacement)
Social History
Tobacco: Smoker (cigars)
Alcohol: Occasional
Drug: None
Review of Systems
Review of Systems
Allergies reviewed?: Yes
All Other Systems: ROS reviewed and negative except as documented in HPI and ROS
Constitutional: Reports no symptoms
EENT: Reports no symptoms
Respiratory: Reports no symptoms
Cardiac: Reports no symptoms
ABD/GI: Reports abdominal pain
: Reports no symptoms
Musculoskeletal: Reports no symptoms
Skin: Reports no symptoms
Neurological: Reports no symptoms
Endocrine: Reports no symptoms
Hematologic/Lymphatic: Reports no symptoms
Psychiatric: Reports anxiety
Phy Exam
General Physical Exam
General Presentation: well appearing and no apparent distress
General Skin: warm and dry
General Habitus: normal
General Mental: alert
General Hydration: appears well hydrated
ENT Exam
ENT Exam: EOMI, pharynx normal, neck supple and normocephalic
Eye Exam
Eye Exam: PERRL, cornea clear and conjunctiva normal
Cardiovascular Exam
Cardiovascular Exam: regular rate/rhythm, no edema, no murmur and normal peripheral pulses
Pulmonary Exam
Pulmonary Exam: lungs clear, no respiratory distress, no rales, no crackles, no rhonchi, no stridor, no wheezing and no cough
Gastrointestinal Exam
Gastrointestinal Exam: normal bowel sounds, non tender, soft, no organomegaly, no pulsatile mass and non distended
Neurological Exam
Neurological Exam: alert, oriented x3, no motor deficits and speech normal
Musculoskeletal Exam
Musculoskeletal Exam: full ROM and no edema
Skin Exam
Skin Exam: normal color, warm/dry, no rash and no petechia
Psychiatric Exam
Psychiatric Exam: normal mood/affect
Course
Orders/Labs/Results
Orders:
Orders
01/19/25 21:41
CR Abdomen - 1 View Urgent
Comment:
Reason For Exam: abd pain
01/19/25 21:51
CRP [C-Reactive Protein] Urgent
Complete Blood Count/With Diff Urgent
Comprehensive Metabolic Panel Urgent
Lactic Acid Urgent
Lipase Urgent
Sed Rate [Erythrocyte Sed Rate] Urgent
01/19/25 22:31
US Abdomen Complete/Upper Urgent
Comment:
Reason For Exam: intermittant abd pain, eev lipase
01/19/25 22:34
Urinalysis Reflex To Culture Urgent
Date Specimen was Collected: 01/19/25
Time Specimen was Collected: 22:32
Abnormal Lab Results
01/19/25
21:51
WBC 3.8 L 10^3/uL
(4.8-10.8)
Carbon Dioxide 32 H mmol/L
(22-30)
Lipase 417 H U/L
(23-300)
01/19/25 21:51
01/19/25 21:51
Vital Signs
Initial and Last Documented VS:
Initial Vital Signs
Temp Pulse Resp BP Pulse Ox
98.2 F 87 20 138/83 98
01/19/25 19:50 01/19/25 19:50 01/19/25 19:50 01/19/25 19:50 01/19/25 19:50
Last Documented Vital Signs
Temp Pulse Resp BP Pulse Ox
98.2 F 70 18 114/68 99
01/19/25 19:50 01/19/25 23:30 01/19/25 23:30 01/19/25 23:30 01/19/25 23:30
*Radiology
Radiology exam reviewed: radiology read reviewed (Ultrasound negative)
*Pulse Oximetry
Patient hypoxic: no
*Critical Care Note
Total Time (30-74mins, 75-104mins- exclusive of procedures): Not Applicable
ED Attending Note
-
Portions of this chart may have been created with voice recognition software.� Occasional wrong word or��sound alike� substitutions may have occurred due to the inherent limitations of voice recognition software.
Discharge Plan
Departure
Patient Disposition: Home (Routine Discharge)
Date of Disposition: 01/19/25
Time of Disposition: 23:46
Patient with high blood pressure during this ER visit?: Yes
Condition: Good
Discharge Problem:
Abdominal pain, Elevated lipase
Prescriptions:
No Action
divalproex [Depakote] 500 mg Tablet,Delayed Release (Dr/Ec)
500 mg PO TID
diazepam 10 mg tablet
10 mg PO TID
Patient Comments:
05/09/2024: Taken w/ 5mg = 25mg; last filled 04/08/24, 60 tabs for 15 days from [facility]
lamotrigine [Lamictal] 200 mg Tablet
200 mg PO DAILY
hydroxyzine HCl 50 mg Tablet
50 mg PO QID
temazepam 30 mg Capsule
30 mg PO HS PRN (Reason: sleep)
levothyroxine 50 mcg Tablet
50 mcg PO DAILY
diphenhydramine HCl [Benadryl] 25 mg Capsule
25 mg PO PRN PRN (Reason: hives)
lisinopril 10 mg Tablet
10 mg PO DAILY
azelastine 137 mcg (0.1 %) [place],Non-Aerosol
2 spray INTRANASAL HS
metformin 500 mg Tablet Extended Release 24hr
500 mg PO BID
quetiapine [Seroquel XR] 150 mg Tablet Extended Release 24 Hr
150 mg PO HS
Ozempic 1 mg/dose (4 mg/3 mL) Pen Injector
1 mg SC MO
magnesium 250 mg tablet
500 mg PO HS
moxifloxacin 0.5 % drops
1 drp ophthalmic (eye) TID 7 Days Qty: 3 0RF
Referrals:
[facility] [Outside]
Jessica Adams MD [Active] -
UNKNOWN - PT DOES,NOT KNOW [Family Provider] -
Activity Restrictions/Additional Instructions:
Please follow-up with your family doctor or gastroenterology for a repeat lipase, as discussed
Thank You for choosing [facility].
It was a pleasure meeting you and taking part in your care. We hope for your continued healing and wellness.
Please read discharge instructions in their entirety. However, they are for general education and may not describe your exact diagnosis at discharge. Information on your ER visit and medical conditions were discussed with you along with appropriate
follow up information...
If indicated, please take your medications as instructed and indicated on discharge paperwork.
Please schedule a follow up appointment as directed. Call to schedule an appointment
Please return to the emergency department with ANY change in, persisting, or worsening of symptoms. If any of your symptoms do not improve, or persist, or become more severe within 6-12 hours, please return to the emergency department for further
care.
Please return to the emergency department if you develop a headache, neck pain/stiffness, fever greater than 100.4F, chest pain, shortness of breath, persistent nausea, vomiting, slurred speech, difficulty walking, numbness/tingling, weakness, signs
of infection or any other symptoms that are worrisome to you.
If you have any questions or concerns please do not hesitate to call the Hospital at or E-mail me directly at [email or web address]
Interventions
Interventions:
*Risk Screen - Suicide Last Done: 01/19/25 19:50
*General Assessment Last Done: 01/19/25 19:50
*Neglect/Abuse Screening Last Done: 01/19/25 19:50
*ED- Fall Risk Assessment Last Done: 01/19/25 21:15
*ED COVID-19 Vaccine History Last Done: 01/20/25 00:15
*Nursing Disposition Last Done: 01/19/25 23:45
OE-Wmkerx-Zussquynzp Assessment Last Done: 01/19/25 21:24
Discharge Date and Time
Discharge Date/Time: 01/19/25 23:50
Print Language: URDU
[2025-01-19 22:02] LABS: % Basophils 0.8 % (0-2); % Immature Granulocytes 0.3 % (0-0.5); % Lymphocytes 44.6 % (20.5-51.1); % Monocytes 8.6 % (1.7-9.3); % Neutrophils 44.7 % (42.2-75.2); Absolute Lymphocytes 1.7 10^3/uL (1.2-3.4); Absolute Monocytes 0.3 10^3/uL (0.1-0.6); Absolute Neutrophils 1.7 10^3/uL (1.4-6.5); Hematocrit 41.3 % (39.0-52.0); Hemoglobin 14.5 g/dL (13.0-18.0); Mean Corp Hgb Conc. 35.1 g/dL (33.0-37.0); Mean Corpuscular Hgb 29.4 pg (27.0-31.0); Mean Corpuscular Volume 83.6 fL (80.0-94.0); Mean Platelet Volume 8.9 fL (7.4-10.4); Nucleated Red Blood Cells % 0 % (-); Platelet Count 254 10^3/uL (130-400); Red Blood Cell Count 4.94 10^6/uL (4.70-6.10); Red Cell Dist. Width 13.6 % (11.5-14.5); White Blood Cell Count 3.8 10^3/uL (4.8-10.8)
[2025-01-19 22:05] LABS: Erythrocyte Sed Rate 1 mm/hour (0-20)
[2025-01-19 22:14] LABS: ALT (SGPT) 23 U/L (0-50); AST (SGOT) 21 U/L (17-59); Alkaline Phosphatase 63 U/L (38-126); Blood Urea Nitrogen 10 mg/dl (9-20); Calcium 9.2 mg/dl (8.4-10.2); Carbon Dioxide 32 mmol/L (22-30); Chloride 104 mmol/L (98-107); Estimated Creatinine Clearance 88 ml/min; Glucose 94 mg/dl (70-99); Lipase 417 U/L (23-300); Potassium 4.8 mmol/L (3.5-5.1); Sodium 139 mmol/L (135-145); Total Bilirubin 0.4 mg/dl (0.2-1.3); Total Protein 6.3 g/dl (6.3-8.2); eGFR > 60.00
[2025-01-19 22:17] LABS: C-Reactive Protein < 5.00 mg/L (0.0-10.00)
[2025-01-19 22:34] VITALS: BP 129/85
[2025-01-19 22:41] LABS: Urine Albumin Negative (Neg - Trace); Urine Bilirubin Negative (Negative); Urine Character Slightly Cloudy (Clear); Urine Color Yellow; Urine Glucose Negative (Negative); Urine Ketone Negative (Negative); Urine Leukocyte Negative (Negative); Urine Nitrite Negative (Negative); Urine Occult Blood Negative (Negative); Urine Urobilinogen Negative (Neg - 1+)
[2025-01-19 23:30] VITALS: BP 114/68
== END 2025-01-19 23:50 | disposition home or self-care (01) ==
LOC: EMR 19:45
PROVIDERS: EMERGENCY PHYSICIAN Student in an Organized Health Care Education/Training Program
DX: R10.9 Unspecified abdominal pain (principal); R74.8 Abnormal levels of other serum enzymes; I10 Essential (primary) hypertension; F17.290 Nicotine dependence, other tobacco product, uncomplicated
CPT/HCPCS: 99284; 74018; 76700; 80053; 81003; 83605; 83690; 85025; 85652; 86140

== ENCOUNTER 2025-03-27 20:16 | Emergency (ER) | payer BC, SELFPAY ==
[2025-03-27 20:26] VITALS: BP 129/87
== END 2025-03-27 23:03 | disposition left against medical advice (07) ==
LOC: EMR 20:16
PROVIDERS: EMERGENCY PHYSICIAN Student in an Organized Health Care Education/Training Program
DX: H53.9 Unspecified visual disturbance (principal); Z53.21 Procedure and treatment not carried out due to patient leaving prior to being seen by health care provider
CPT/HCPCS: 70450

== ENCOUNTER 2025-04-23 09:50 | Emergency (ER) | payer BC, SELFPAY ==
[2025-04-23 10:01] VITALS: BP 128/87
--- NOTE | 2025-04-23 12:10 | ED.GENMED ---
History of Present Illness
General
Chief Complaint: Change in Mental Status
Source: patient
Exam Limitations: none
Time Seen by Provider: 04/23/25 11:33
Nursing documentation reviewed up to this point in time: agreed with
History of Present Illness
History of Present Illness:
Patient is a 45-year-old male with past medical history of bipolar disorder anxiety depression, seizure disorder presents to the ER for evaluation. Patient had his first seizure he reports at age [age] was at that time followed by neurologist
Dilip West. He was taken off Lamictal 5 months ago by his neurologist. He has had brain fog memory issues and blurry vision ever since his seizure in 2022. He has had episodes of memory issues in fact he reports he was seen on Monday for
memory issue in the ER at [facility] had a CAT scan and blood work at that time. Last night he was sitting at home and had another episode of confusion. He reports he was sitting with his keys in his hand and cannot remember where he was
going. He reports the episode lasted about 45 minutes. This is what brought him here to the ER today. He has not happy with his current neurologist and has a new neurologist appointment scheduled for June 28 with .
He is on depakote as well as other meds. No recent trauma.
Past History
Past History
ED Past Medical History: HTN, Seizures, Psychiatric (anxiety) and Other (hiatal hernia)
ED Past Surgical History: Orthopedic (Bilateral hip replacement)
Social History
Tobacco: Smoker (cigars)
Alcohol: Occasional
Drug: None
Phy Exam
General Physical Exam
General Presentation: no apparent distress
General age: appears stated age
General Skin: warm and dry
General Habitus: normal
General Mental: alert
General Hydration: appears well hydrated
Eye Exam
Eye Exam: PERRL and EOMI
Eye Exam General: PERRL: bilateral and EOM intact: bilateral
Pupil Exam: Bilateral: round and reactive
Cardiovascular Exam
Cardiovascular Exam: regular rate/rhythm, no murmur and normal peripheral pulses
Neurological Exam
Neurological Exam: alert, oriented x3, no motor deficits and no sensory deficits
Sada Coma Scale
Eye Opening: Spontaneous
Verbal Response: Oriented
Motor Response: Obeys Commands
GCS Total Score: 15
Musculoskeletal Exam
Musculoskeletal Exam: full ROM
Skin Exam
Skin Exam: normal color and warm/dry
Psychiatric Exam
Psychiatric Exam: normal mood/affect
Course
Orders/Labs/Results
Orders:
Orders
04/23/25 12:31
Complete Blood Count/With Diff Urgent
Comprehensive Metabolic Panel Urgent
Valproic Acid Level [Depakane] Urgent
Abnormal Lab Results
04/23/25
12:31
WBC 4.3 L 10^3/uL
(4.8-10.8)
Neutrophils % 37.9 L %
(42.2-75.2)
Monocytes % 11.9 H %
(1.7-9.3)
Carbon Dioxide 31 H mmol/L
(22-30)
Glucose 102 H mg/dl
(70-99)
Total Protein 5.9 L g/dl
(6.3-8.2)
04/23/25 12:31
04/23/25 12:31
Vital Signs
Initial and Last Documented VS:
Initial Vital Signs
Temp Pulse Resp BP Pulse Ox
98.6 F 101 16 128/87 98
04/23/25 10:01 04/23/25 10:01 04/23/25 10:01 04/23/25 10:01 04/23/25 10:01
Last Documented Vital Signs
Temp Pulse Resp BP Pulse Ox
98.6 F 88 20 125/77 99
04/23/25 10:01 04/23/25 12:20 04/23/25 12:20 04/23/25 12:20 04/23/25 12:20
MDM/Problems Addressed
Differential Diagnosis Includes:
Not limited to chronic brain fog, seizure
MDM/Problems Addressed:
As documented patient send 45 male with history of seizures taken off of his Lamictal 5 months ago by his former neurologist Dr. Dilip West. He reports since having seizures in 2022 he has had issues with blurry vision and brain fog. He has
also had memory issues. He reports intermittent episodes of feeling very forgetful forgetting what he was doing at the moment. He is scheduled to see a new neurologist June 28, Dr. Vogel.
He was seen at [facility] on Monday several days ago and reports he had a CAT scan because of his memory issues and blood work which was negative. They did not check his Depakote level. Will recheck Depakote level on labs today however we
will hold off on any additional imaging as he just had this and will likely need further continued followed by neurology .no concerning emergent causes of symptoms here in the ER. Case d/c with ED physician , considered possible seizures as a cause
for intermittent episodes of memory issues however patient is well-appearing/ neurologically intact in the ER with no current symptoms.
He has an appointment with his new neurologist June 28 for likely needed continue to follow-up, nothing urgent to do here in the ER.
*Pulse Oximetry
SaO2: 98
Oxygen Mode of Delivery: Room air
Patient hypoxic: no
*Critical Care Note
Total Time (30-74mins, 75-104mins- exclusive of procedures): Not Applicable
ED Attending Note
-
Portions of this chart may have been created with voice recognition software.� Occasional wrong word or��sound alike� substitutions may have occurred due to the inherent limitations of voice recognition software.
Discharge Plan
Departure
Patient Disposition: Home (Routine Discharge)
Date of Disposition: 04/23/25
Time of Disposition: 13:38
Patient with high blood pressure during this ER visit?: No
Condition: Fair
Covid-19: Not Applicable
Discharge Problem:
memory issues, Brain fog
Prescriptions:
No Action
divalproex [Depakote] 500 mg Tablet,Delayed Release (Dr/Ec)
500 mg PO TID
diazepam 10 mg tablet
10 mg PO TID
Patient Comments:
05/09/2024: Taken w/ 5mg = 25mg; last filled 04/08/24, 60 tabs for 15 days from [facility]
lamotrigine [Lamictal] 200 mg Tablet
200 mg PO DAILY
hydroxyzine HCl 50 mg Tablet
50 mg PO QID
temazepam 30 mg Capsule
30 mg PO HS PRN (Reason: sleep)
levothyroxine 50 mcg Tablet
50 mcg PO DAILY
diphenhydramine HCl [Benadryl] 25 mg Capsule
25 mg PO PRN PRN (Reason: hives)
lisinopril 10 mg Tablet
10 mg PO DAILY
azelastine 137 mcg (0.1 %) [place],Non-Aerosol
2 spray INTRANASAL HS
metformin 500 mg Tablet Extended Release 24hr
500 mg PO BID
quetiapine [Seroquel XR] 150 mg Tablet Extended Release 24 Hr
150 mg PO HS
Ozempic 1 mg/dose (4 mg/3 mL) Pen Injector
1 mg SC MO
magnesium 250 mg tablet
500 mg PO HS
moxifloxacin 0.5 % drops
1 drp ophthalmic (eye) TID 7 Days Qty: 3 0RF
Referrals:
Dai Dumont DO [Family Provider, Family Practice]
Activity Restrictions/Additional Instructions:
Follow-up with your new neurologist as scheduled for further evaluation of symptoms. In addition please follow-up with family doctor.
Interventions
Interventions:
*Risk Screen - Suicide Last Done: 04/23/25 10:01
*Neglect/Abuse Screening Last Done: 04/23/25 10:01
ED- Pulmonary Assessment Last Done: 04/23/25 12:20
ED- Neurological Assessment Last Done: 04/23/25 12:20
ED- Cardiac Assessment Last Done: 04/23/25 12:20
Discharge Date and Time
Print Language: [place]
[2025-04-23 12:20] VITALS: BP 125/77
[2025-04-23 12:39] LABS: Hematocrit 40.2 % (39.0-52.0); Hemoglobin 13.8 g/dL (13.0-18.0); Mean Corp Hgb Conc. 34.3 g/dL (33.0-37.0); Mean Corpuscular Volume 85.2 fL (80.0-94.0); Nucleated Red Blood Cells % 0 % (-); Platelet Count 236 10^3/uL (130-400); Red Cell Dist. Width 13.6 % (11.5-14.5)
[2025-04-23 12:55] LABS: ALT (SGPT) 14 U/L (0-50); AST (SGOT) 17 U/L (17-59); Albumin 3.9 g/dl (3.5-5.0); Alkaline Phosphatase 73 U/L (38-126); Blood Urea Nitrogen 9 mg/dl (9-20); Calcium 9.2 mg/dl (8.4-10.2); Carbon Dioxide 31 mmol/L (22-30); Chloride 104 mmol/L (98-107); Glucose 102 mg/dl (70-99); Potassium 4.5 mmol/L (3.5-5.1); Sodium 138 mmol/L (135-145); Total Protein 5.9 g/dl (6.3-8.2); eGFR > 60.00
[2025-04-23 13:12] LABS: Depakane 69.4 ug/ml (50.0-120.0)
[2025-04-23 13:50] VITALS: BP 129/91
== END 2025-04-23 14:00 | disposition home or self-care (01) ==
LOC: EMR 09:50
PROVIDERS: Nurse Practitioner; EMERGENCY PHYSICIAN Student in an Organized Health Care Education/Training Program; FAMILY PHYSICIAN Family Medicine
DX: R41.82 Altered mental status, unspecified (principal); F31.9 Bipolar disorder, unspecified; F41.9 Anxiety disorder, unspecified; I10 Essential (primary) hypertension; F17.290 Nicotine dependence, other tobacco product, uncomplicated; Z96.643 Presence of artificial hip joint, bilateral
CPT/HCPCS: 99283; 80053; 80164; 85025

== ENCOUNTER 2025-05-20 04:52 | Emergency (ER) | payer BC, SELFPAY ==
[2025-05-20 05:08] VITALS: BP 124/81
[2025-05-20 07:30] VITALS: BP 126/72
--- NOTE | 2025-05-20 07:30 | ED.GENMED ---
History of Present Illness
General
Chief Complaint: Sleep Disturbances
Time Seen by Provider: 05/20/25 06:44
History of Present Illness
History of Present Illness:
45-year-old male with history of seizure disorder and bipolar disorder presents to the emergency department for concerns over insomnia. He states he has chronic insomnia, has been treated for many years by his psychiatrist and primary care
physician. He is on lamotrigine, Depakote, Seroquel, and diazepam daily but has tried additional medications such as temazepam, Ambien, hydroxyzine, and Unisom with variable benefit. States he has not slept in over 1 week. Denies any
hallucinations. He does report he is having increasing 'brain fog' that has required him to take a leave of absence from work. Denies SI or HI. He is simply here hopeful for some type of pharmacotherapeutic relief provide him some sleep benefit.
Past History
Past History
ED Past Medical History: HTN, Seizures, Psychiatric (anxiety) and Other (hiatal hernia)
ED Past Surgical History: Orthopedic (Bilateral hip replacement)
Social History
Tobacco: Smoker (cigars)
Alcohol: Occasional
Drug: None
Review of Systems
Review of Systems
Allergies reviewed?: Yes
All Other Systems: ROS reviewed and negative except as documented in HPI and ROS
Phy Exam
Physical Exam
Physical Exam:
GEN: Well appearing, NAD, WDWN
HEENT: Oral mucosa moist, no scleral icterus
Cardiac: Regular rate
Lung: No respiratory distress, no tachypnea
MSK: No gross deformity or injuries
Skin: Good color, no pallor or jaundice, no rashes
Neuro: AO x3, moves all extremities freely
Psych: Calm, cooperative
Course
Vital Signs
Initial and Last Documented VS:
Initial Vital Signs
Temp Pulse Resp BP Pulse Ox
98.1 F 81 16 124/81 96
05/20/25 05:08 05/20/25 05:08 05/20/25 05:08 05/20/25 05:08 05/20/25 05:08
Last Documented Vital Signs
Temp Pulse Resp BP Pulse Ox
98.1 F 81 16 126/72 96
05/20/25 05:08 05/20/25 05:08 05/20/25 05:08 05/20/25 07:30 05/20/25 07:31
MDM/Problems Addressed
MDM/Problems Addressed:
Discussed with the patient that he is on numerous psychiatric medications thus medication therapy for insomnia quite challenging. He is not suicidal or homicidal and there will be no benefit to psychiatric admission. He does question whether he
could be admitted to the hospital for 'RNR' however advised him that this is not an appropriate use of hospital resources. Will trial ramelteon given that this has the least medication interactions with his current prescriptions otherwise.
Encourage him to f/u with PCP
*Pulse Oximetry
SaO2: 96
Oxygen Mode of Delivery: Room air
Patient hypoxic: no
*Critical Care Note
Total Time (30-74mins, 75-104mins- exclusive of procedures): Not Applicable
ED Attending Note
-
Portions of this chart may have been created with voice recognition software.� Occasional wrong word or��sound alike� substitutions may have occurred due to the inherent limitations of voice recognition software.
Discharge Plan
Departure
Patient Disposition: Home (Routine Discharge)
Date of Disposition: 05/20/25
Time of Disposition: 07:36
Patient with high blood pressure during this ER visit?: No
Discharge Problem:
Chronic insomnia
Instructions: Insomnia (DC)
Prescriptions:
New
ramelteon [Rozerem] 8 mg tablet
8 mg PO HS PRN (Reason: insomnia) Qty: 10 0RF
No Action
divalproex [Depakote] 500 mg Tablet,Delayed Release (Dr/Ec)
500 mg PO TID
diazepam 10 mg tablet
10 mg PO TID
Patient Comments:
05/09/2024: Taken w/ 5mg = 25mg; last filled 04/08/24, 60 tabs for 15 days from [facility]
lamotrigine [Lamictal] 200 mg Tablet
200 mg PO DAILY
hydroxyzine HCl 50 mg Tablet
50 mg PO QID
temazepam 30 mg Capsule
30 mg PO HS PRN (Reason: sleep)
levothyroxine 50 mcg Tablet
50 mcg PO DAILY
diphenhydramine HCl [Benadryl] 25 mg Capsule
25 mg PO PRN PRN (Reason: hives)
lisinopril 10 mg Tablet
10 mg PO DAILY
azelastine 137 mcg (0.1 %) [employer],Non-Aerosol
2 spray INTRANASAL HS
metformin 500 mg Tablet Extended Release 24hr
500 mg PO BID
quetiapine [Seroquel XR] 150 mg Tablet Extended Release 24 Hr
150 mg PO HS
Ozempic 1 mg/dose (4 mg/3 mL) Pen Injector
1 mg SC MO
magnesium 250 mg tablet
500 mg PO HS
moxifloxacin 0.5 % drops
1 drp ophthalmic (eye) TID 7 Days Qty: 3 0RF
Referrals:
Dai Dumont DO [Family Provider, Family Practice]
Activity Restrictions/Additional Instructions:
Some newer agents such as Quviviq or Belsomra may be an option, however these have more interactions with your medications and can be cost-prohibitive. Please discuss these with your primary doctor if the ramelteon does not help
Interventions
Interventions:
*Risk Screen - Suicide Last Done: 05/20/25 05:08
*General Assessment Last Done: 05/20/25 05:08
*Neglect/Abuse Screening Last Done: 05/20/25 05:08
*ED- Fall Risk Assessment Last Done: 05/20/25 05:08
*ED COVID-19 Vaccine History Last Done: 05/20/25 05:08
*Nursing Disposition Last Done: 05/20/25 08:08
ED- Neurological Assessment Last Done: 05/20/25 07:30
ED-Psychological Assessment Last Done: 05/20/25 07:30
ED-Suicide Risk Assessment Last Done: 05/20/25 07:30
Discharge Date and Time
Discharge Date/Time: 05/20/25 07:45
Print Language: PALESTINIAN
== END 2025-05-20 07:45 | disposition home or self-care (01) ==
LOC: EMR 04:52
PROVIDERS: EMERGENCY PHYSICIAN Emergency Medicine; FAMILY PHYSICIAN Family Medicine
DX: F51.04 Psychophysiologic insomnia (principal); I10 Essential (primary) hypertension; F17.290 Nicotine dependence, other tobacco product, uncomplicated; Z79.899 Other long term (current) drug therapy
CPT/HCPCS: 99283